=== PATIENT | female | born 1970 | race Caucasian/White ===

== ENCOUNTER 2017-12-27 13:00 | Outpatient (RCR) | payer MEDICAID, SELFPAY ==
--- NOTE | 2018-01-07 13:45 | PTTR_ITS ---
DATE: 01/07/18 SUBJECTIVE: [facility] states that she overall has been noting less heaviness, pressure. She feels she is controlling and more self manageable with her HEP. 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 Therapeutic procedures ([id number]). Promote EMG biofeedback for neuromuscular re- education of the pelvic floor via vaginal internal sensor independently placed by patient. Average resting tone was initially at 3.1 microvolts, however post relaxation and verbal cueing along with biofeedback was able to obtain a 1.9 microvolt reading. We incorporated pelvic floor isolation with use of wedge pillow under legs for comfort incorporating prolonged holds. She was able to isolate and contract 15 microvolts or high for 6-7 seconds. We then incorporated co-contraction with hip adductors with good isolation, again above 15 microvolts with average hold of 10 seconds. We incorporated ER with green Therabrand with good isolation and co-contraction of the pelvic floor,again holding for 10 seconds with 15 microvolt or greater. We then introduce bridging with good contraction 20 microvolts for 10 second hold with co- contraction. Initiated isolation first. She had good awareness and improved [id number] with improved endurance. Upgraded her HEP to incorporate co-contraction exercises along with isolation. Will follow up with her in 3-4 weeks and monitor her response and continue with EMG treatment. Direct treatment time: 30 mins Total treatment time: 30 mins KW/dp
--- NOTE | 2018-01-28 13:00 | PTTR_ITS ---
DATE: January 28, 2018 SUBJECTIVE: Armin reports that she feels that she has been doing better however is glad that the warmer weather is here for this is when she really seems to feel that she can not hold her bladder. She reports of only 2 occurrences of leakage since his last visit. She reports continued compliance with her HEP. She does continue to pee just in case before going out in the barn or before she leaves the house. She notes she also has noticed increased difficulty in holding while horse back riding. She does not feel that she has the strength to contract while riding. OBJECTIVE: Therapeutic procedures ([id number]). * X HEP review: Promoting isolation of the pelvic floor with urgency and to avoid just in case peeing to promote bladder strength and stabilization. Also recommended performing a plie squat with cocontraction of the pelvic floor to simulate horse back riding. * X Provided skilled instruction in proper exercise performance: utilizing EMG biofeedback for neuromuscular reeducation of the pelvic floor via internal vaginal sensor independently placed via patient. Patient's resting tone was 4 mV at lowest today however was in a lot of discomfort in her right shoulder. She received a cortisone injection the other day and has had a lot of discomfort since. She is having a very difficult time finding a comfortable position. Promoted isolation exercises only today secondary to this with quick flick contractions and prolonged hold. Able to demonstrate 10 seconds contractions greater than 15 mV consistently and consecutively for 10 contractions. * X Provided skilled manual cues to facilitate proper muscle recruitment and/ or movement pattern: avoiding holding her breath and promoting diaphragmatic breathing. Feel that the heat might be a trigger for her. Emphasized contraction to avoid increased frequency of bathroom trips. Will follow up in 3 weeks and proceed accordingly. Direct treatment time: 30 minutes Total treatment time: 30 minutes
== END 2018-05-29 ==
LOC: PT 14:00
PROVIDERS: PCP Nurse Practitioner Family; Referring Provider Nurse Practitioner Women's Health; Visit Provider Nurse Practitioner Women's Health
DX: N36.44 Muscular disorders of urethra (principal); N81.10 Cystocele, unspecified; N39.3 Stress incontinence (female) (male)
CPT/HCPCS: 97110

== ENCOUNTER 2019-01-14 14:49 | Outpatient (CLI) | payer MEDICAID, SELFPAY ==
[2019-01-14 15:08] LABS: Abs Immature Grans 0.01 k/cumm (0.0-0.09); Absolute Basophil Count 0.02 k/cumm (0.0-0.2); Absolute Eosinophil Count 0.07 k/cumm (0.0-0.7); Absolute Lymphocyte Count 1.81 k/cumm (1.2-3.4); Absolute Monocyte Count 0.33 k/cumm (0.11-0.7); Absolute Neutrophil Count 4.22 k/cumm (1.2-6.7); Basophils % 0.3; Eosinophils % 1.1; HCT 38.1 % (36.0-46.0); HGB 12.7 g/dL (12.0-15.5); Immature Grans % 0.2; Mean Corp. HGB Concentration 33.3 g/dL (32.0-36.0); Mean Corpuscular Hemoglobin 28.2 pg (27.0-33.0); Mean Corpuscular Volume 84.7 fL (80-95); Mean Platelet Volume 8.9 fL (8.0-11.0); Monocytes % 5.1; Neutrophils % 65.3; Platelet Count 266 x1000/uL (130-400); RBC Distribution Width 13.9 % (11.7-14.6); White Blood Cell Count 6.46 k/cumm (4.4-10.8)
[2019-01-14 17:20] LABS: ALT 21 U/L (12-78); AST 13 U/L (15-37); Albumin 3.6 g/dL (3.4-5.0); Alkaline Phosphatase 68 U/L (46-116); Anion Gap 8.5 mmol/L (3-11); BUN 13 mg/dL (7-18); Bilirubin, Total 0.3 mg/dL (0.2-1.0); CO2 27.5 mmol/L (21.0-32.0); CREATININE 0.78 mg/dL (0.55-1.02); Calcium 8.9 mg/dL (8.5-10.1); Chloride 101 mmol/L (98-107); Glucose 86 mg/dL (70-100); Lipase 151 U/L (73-393); Potassium 3.6 mmol/L (3.5-5.1); Sodium 137 mmol/L (136-145); Total Protein 7.4 g/dL (6.4-8.2)
[2019-01-19 12:29] LABS: Helicobacter pylori Ag, Feces Negative (NEGAT)
== END 2019-01-14 15:09 ==
PROVIDERS: PCP Nurse Practitioner Family; Visit Provider Nurse Practitioner Family
DX: R10.84 Generalized abdominal pain (principal); R11.0 Nausea; R14.2 Eructation; K59.00 Constipation, unspecified
CPT/HCPCS: 36415; 80053; 83690; 87338; 85025

== ENCOUNTER 2019-01-26 00:46 | Outpatient (CLI) | payer MEDICAID, SELFPAY ==
--- NOTE | 2019-01-26 07:41 | DI.US_ITS ---
SYMPTOM/DIAGNOSIS: ? HEPATOBILIARY PATHOLOGY,ABD PAIN, R10.84,R11.0,R14.2, NAUSEA, BELCHING, ERUCATION, K59.00, CONSTIPATION ABDOMEN ULTRASOUND: Routine examination. No priors. The aorta is of normal caliber. The IVC is unremarkable. The liver is normal in size. There is diffuse increased echogenicity of the liver suggestive of hepatic steatosis. No evidence of a hepatic mass is seen. The gallbladder and bile ducts are within normal limits as are the pancreas and spleen and kidneys. The left lower quadrant was evaluated sonographically and is grossly unremarkable. IMPRESSION: Hepatic steatosis.
== END 2019-01-26 01:06 ==
PROVIDERS: PCP Nurse Practitioner Family; Visit Provider Nurse Practitioner Family
DX: R10.84 Generalized abdominal pain (principal); R11.0 Nausea; R14.2 Eructation; K59.00 Constipation, unspecified; K76.0 Fatty (change of) liver, not elsewhere classified
CPT/HCPCS: 76700

== ENCOUNTER 2019-10-04 15:45 | Outpatient (REF) | payer MEDICAID, SELFPAY ==
[2019-10-04 18:41] LABS: Abs Immature Grans 0.01 k/cumm (0.0-0.09); Absolute Basophil Count 0.02 k/cumm (0.0-0.2); Absolute Lymphocyte Count 2.24 k/cumm (1.2-3.4); Basophils % 0.3; Eosinophils % 1.6; HCT 38.6 % (36.0-46.0); HGB 12.8 g/dL (12.0-15.5); Immature Grans % 0.2 %; Lymphocytes % 35.7; Mean Corp. HGB Concentration 33.2 g/dL (32.0-36.0); Mean Corpuscular Hemoglobin 28.2 pg (27.0-33.0); Mean Platelet Volume 9.1 fL (8.0-11.0); Monocytes % 6.4; Neutrophils % 55.8; Platelet Count 325 x1000/uL (130-400); RBC 4.54 m/cumm (4.00-5.20); RBC Distribution Width 13.4 % (11.7-14.6); White Blood Cell Count 6.27 k/cumm (4.4-10.8)
[2019-10-04 19:13] LABS: ALT 23 U/L (14-59); AST 13 U/L (15-37); Alkaline Phosphatase 65 U/L (46-116); BUN 15 mg/dL (7-18); Bilirubin, Total 0.3 mg/dL (0.2-1.0); CREATININE 0.86 mg/dL (0.55-1.02); Calcium 9.2 mg/dL (8.5-10.1); Chloride 102 mmol/L (98-107); Glucose 100 mg/dL (74-106); Potassium 3.9 mmol/L (3.5-5.1); Sodium 140 mmol/L (136-145); Total Protein 8.1 g/dL (6.4-8.2)
== END 2019-10-04 16:05 ==
LOC: LBN 15:45
PROVIDERS: PCP Nurse Practitioner Family; Visit Provider Nurse Practitioner Adult Health
DX: R10.9 Unspecified abdominal pain (principal); R16.1 Splenomegaly, not elsewhere classified
CPT/HCPCS: 80053; 85025

== ENCOUNTER 2019-10-05 08:33 | Outpatient (REF) | payer MEDICAID, SELFPAY ==
[2019-10-07 12:16] LABS: Helicobacter pylori Ag, Feces Negative (Negative)
== END 2019-10-05 08:53 ==
LOC: LBN 08:33
PROVIDERS: PCP Nurse Practitioner Family; Visit Provider Nurse Practitioner Adult Health
DX: K62.5 Hemorrhage of anus and rectum (principal); R10.9 Unspecified abdominal pain; R12 Heartburn
CPT/HCPCS: 87338; 82272; 82274

== ENCOUNTER 2019-11-08 01:17 | Outpatient (CLI) | payer MEDICAID, SELFPAY ==
--- NOTE | 2019-11-08 15:36 | DI.MAMMO_ITS ---
EXAM: MG MAMMO SCREENING CLINICAL HISTORY: screening TECHNIQUE: Mammograms were interpreted according to the usual protocol including computer analysis w [employer] CAD system, tomosynthesis and C-view imaging. COMPARISON: 2018 FINDINGS: The breasts are composed of heterogeneously dense fibroglandular densities, Breast Density category C . No suspicious masses or suspicious microcalcifications are seen. No skin thickening or abnormal axillary lymph nodes are seen. There has been no significant change from prior exams. IMPRESSION: BIRADS Category 1, negative mammogram. Yearly screening mammography is recommended. BREAST DENSITY: The mammogram demonstrates the patient's breast tissue is dense. Dense breast tissue is very common and is not abnormal but dense breast tissue can make it harder to find cancer on a ma mmogram. Also, dense breast tissue may increase breast cancer risk. This information about the result of the mammogram report was provided to the patient to raise their awareness. Use this report when y ou speak with the patient about their risks for breast cancer, which includes their family history. A t that time, you may recommend additional screening tests (Ultrasound or MRI) as they might be useful based on their risk. A negative radiographic report should not delay biopsy if a dominant or clinically suspicious mass is present. Up to ten percent of cancers are not identified on mammography. A negative report may reinforce clinical impression. Adenosis and dense breasts may obscure an underlying neoplasm. False positive reports average 6 to 10%.
== END 2019-11-08 01:37 ==
PROVIDERS: PCP Nurse Practitioner Family; Visit Provider Nurse Practitioner Family
DX: Z12.31 Encounter for screening mammogram for malignant neoplasm of breast (principal)
CPT/HCPCS: 77063; 77067

== ENCOUNTER 2020-03-13 14:54 | Emergency (ER) | payer MEDICAID, SELFPAY ==
[2020-03-13 15:01] VITALS: BP 200/110; PULSE 71; RESP 16; TEMP 36.9; O2SAT 97
--- NOTE | 2020-03-13 15:30 | ED.GENADUL_ITS ---
Discharge Plan Disposition Patient Disposition: HOME Condition: Stable Discharge Details Chief Complaint: Chest/Rib Clinical Impression: Chest wall injury Primary Care Provider: Jo Ann May ED Provider: Pablo Rashid Home Meds and New Rx's Prescriptions: No Action No Known Home Meds RF: 0 Discharge Instructions Instructions: Rib Contusion (ED) Additional Instructions: At this time x-rays unremarkable. Gentle stretching as tolerated. Cool compresses every 2 hours for 20 minutes. [id number] Tylenol and/or Motrin as directed for discomfort. Please watch for new or worsening symptoms and return to the ER for any concerns. I do recommend reaching out your primary care provider tomorrow for prompt outpatient reevaluation Discharge Data Discharge Date/Time-TO BE ENTERED AT DEPARTURE: 03/13/20 16:39 Medical Decision Making 49-year-old female presenting for a left chest wall injury that occurred earlier today. She appears well, nontoxic. O2 sats are in the high 90s on room air, heart rate in the 70s. She was noted to be quite hypertensive although denies any headache, chest pain, shortness of breath, numbness, tingling, weakness. We discussed analgesia but she does not want anything for her pain. Will obtain chest x-ray with left rib series and reassessment X-ray read by me and later confirmed with radiology as negative. No signs of pneumothorax or obvious rib fracture. Discussed findings with patient. She is relieved and has no additional questions or concerns. She does not want a prescription for analgesia and would prefer to take [id number] medications. Repeat blood pressure is now 181/100, has come down from her initial presentation without therapy. She remains otherwise asymptomatic regarding her hypertension. We did discuss her hypertension and the importance of outpatient follow-up as she may require hypertension medications if her blood pressure does not come down when she is not any pain. Patient is agreeable to this plan and has no additional questions or concerns. Medical Records Medical records reviewed: Yes I reviewed the patient's medical records. HPI General Mode of arrival: ambulatory . Date/Time Provider Initiated Documentation: 03/13/20 15:10 . Limitations to Documentation: no limitations . Information obtained by: patient . HPI Narrative: This is a 49-year-old female with history of hypertension, IBS, migraines, anxiety, presenting to the ER for evaluation of left chest wall and rib pain. She says that 2 horses began to play-fight, they were running toward her, and she dove out of the way. While she was diving 1 horse did bump her from behind and made her fall harder than she would have. She struck the left side of her chest on the ground. She was not stepped on by the horse. She reports that the pain is mild at rest moderate with movement or deep breathing. She denies striking her head, headache, LOC, neck pain, visual changes, shortness of breath, abdominal pain, nausea, vomiting, numbness, tingling, weakness. Related Data Home Medications Medication Instructions Recorded Confirmed Unknown [No Known Home Meds] 03/13/20 03/13/20 Allergies Allergy/AdvReac Type Severity Reaction Status Date / Time fentanyl Allergy Intermediate unable to Verified 03/13/20 15:08 speak midazolam Allergy Intermediate unable to Verified 03/13/20 15:08 speak bacitracin Allergy Verified 03/13/20 15:08 [From Neosporin ([id number])] bacitracin zinc Allergy Verified 03/13/20 15:08 [From Neosporin ([id number])] latex Allergy Verified 03/13/20 15:08 neomycin sulfate Allergy Verified 03/13/20 15:08 [From Neosporin ([id number])] Penicillins Allergy Verified 03/13/20 15:08 polymyxin B Allergy Verified 03/13/20 15:08 [From Neosporin (vdw-[id number])] sumatriptan [From Imitrex] Allergy Verified 03/13/20 15:08 sumatriptan succinate Allergy Unverified 03/13/20 15:08 [From Imitrex] General Stated Complaint: Chest/Rib BRYANNA: 3 Review of Systems Constitutional Constitutional: Reports headache(s) (Migraines) and Denies weakness Eyes Eyes: Denies change in vision ENT Ears, Nose, Mouth, and Throat: Reports headache(s) (Migraines) and Denies neck pain Cardiovascular Cardiovascular: Reports chest pain (Chest wall pain) and Denies dyspnea Respiratory Respiratory: Denies cough and Denies dyspnea Gastrointestinal Gastrointestinal: Denies abdominal pain, Denies nausea and Denies vomiting Musculoskeletal Musculoskeletal: Denies back pain, Denies neck pain, Denies numbness and Denies tingling Integumentary/Breasts Skin/Breast: Denies rash Neurologic Neurologic: Reports headache(s) (Migraines), Denies numbness, Denies tingling and Denies weakness [facility] Medical History Arthritis of right acromioclavicular joint (Chronic 01/16/18) Atopic dermatitis (Chronic) Depression (Chronic) YUMIKO (generalized anxiety disorder) (Chronic) History of melanoma (Inactive) Hyperlipidemia, unspecified (Chronic 02/08/18) 01/2018 labs: 10-year ASCVD = 1% --> no statin indicated at this time IBS (irritable bowel syndrome) (Chronic) Migraine without status migrainosus (Chronic) Migraines (Resolved) Right rotator cuff tendinitis (Acute 01/16/18) Tendinopathy of right biceps tendon (Acute 01/16/18) Uterine prolapse (Chronic) Surgical History section (Resolved ~2010) Family History Mother , Colon CA at age 55. 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 gender identity: female What type of physical activity do you participate in: walking Frequency: daily Do you feel safe at home: Yes Do you feel safe in your relationship?: Yes Exam Const General: cooperative, healthy appearing, comfortable and no acute distress Orientation: alert, awake and oriented x3 HENMT Head: normal to inspection, normocephalic and atraumatic Face and sinus: normal facial exam Mouth: moist mucous membranes Eyes Conjunctivae: conjunctivae normal Sclera: sclerae normal EOM: EOM intact bilaterally Neck Neck: normal visual inspection, full ROM, trachea midline, supple and nontender Chest Chest: normal inspection of the chest, no crepitus and tenderness (Diffuse left lateral chest wall) Resp Effort & Inspection: normal respiratory effort and able to speak in complete sentences Auscultation: clear to auscultation bilaterally Cardio Rate: regular rate Rhythm: regular rhythm GI Inspection: normal to inspection Palpation: soft and nontender Back/Spine/Pelvis Back: No back tenderness Skin General skin exam: no rashes or lesions noted Neuro General: patient alert, patient awake, patient oriented x3, moves all extremities and no focal motor deficits Speech: speech normal Gait: normal gait Motor: muscle tone normal throughout and strength 5/5 throughout Sensory Exam: no sensory deficits noted Extrem General: normal to inspection, full ROM and capillary refill normal Psych Appearance: grossly normal Mental Status: mental status grossly normal Course Vital Signs Vital signs: Vital Signs Temperature 36.9 C 03/13/20 15:01 Pulse 71 03/13/20 15:01 Respiratory Rate 16 03/13/20 15:01 Blood Pressure 200/110 H 03/13/20 15:01 Pulse Oximetry 97 03/13/20 15:01 Temperature 36.9 C 03/13/20 15:01 Temperature Source Skin 03/13/20 15:01 Pulse 71 03/13/20 15:01 Respiratory Rate 16 03/13/20 15:01 Respiratory Depth Shallow 03/13/20 15:05 Blood Pressure 200/110 H 03/13/20 15:01 Blood Pressure Position Standing 03/13/20 15:01 Pulse Oximetry 97 03/13/20 15:01 Oxygen Delivery Method Room Air 03/13/20 15:01 Oxygen Flow Rate 0 03/13/20 15:01 Pain Level 7 03/13/20 15:05 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
--- NOTE | 2020-03-13 15:46 | DI.RAD_ITS ---
EXAM: XR RIBS LT W PA LAT CHEST CLINICAL HISTORY: fall off horse, pain L ribs. COMPARISON: No exams were available for comparison FINDINGS: LUNGS: Clear. No pneumothorax, infiltrate or effusion is seen. Heart: Normal size. BONES: Four views of the ribs were performed. No displaced rib fracture is seen. The spine appears intact. IMPRESSION: Unremarkable radiographic appearance of the chest and left ribs.
[2020-03-13 15:49] VITALS: BP 181/100; PULSE 62; RESP 20; O2SAT 97
== END 2020-03-13 16:39 | disposition home or self-care (01) ==
PROVIDERS: Emergency Provider Physician Assistant; PCP Nurse Practitioner Family
DX: S29.091A Other injury of muscle and tendon of front wall of thorax, initial encounter (principal); W55.12XA Struck by horse, initial encounter; I10 Essential (primary) hypertension
CPT/HCPCS: 99283; 71046; 71100

== ENCOUNTER 2020-10-09 02:12 | Outpatient (CLI) | payer MEDICAID, SELFPAY ==
[2020-10-10 13:21] LABS: COVID-19 RT-PCR UVMMC Result Negative (Negative)
== END 2020-10-09 02:32 ==
PROVIDERS: PCP Nurse Practitioner Family; Visit Provider Nurse Practitioner Family
DX: Z20.822 Contact with and (suspected) exposure to COVID-19 (principal)
CPT/HCPCS: U0003

== ENCOUNTER 2021-07-12 01:27 | Outpatient (CLI) | payer MEDICAID, SELFPAY ==
--- NOTE | 2021-07-12 08:30 | DI.MAMMO_ITS ---
Exam(s) MAMMO SCREENING EXAM: MAMMO SCREENING CLINICAL HISTORY: screening.Z12.39 TECHNIQUE: Mammograms were interpreted according to the usual protocol including computer analysis w [employer] CAD system, tomosynthesis and C-view imaging. COMPARISON: FINDINGS: The breasts are heterogeneously dense. No dominant mass or clumped microcalcification is identified in either breast. Current examination is compared with previous examinations including November 2017 an d there is new 10 millimeter in diameter medial right retroareolar breast mass not visible on prior s tudies. No other significant change seen. Additional mammographic views of this area to include CC and MLO spot compression view are recommended, ultrasound recommended as well. IMPRESSION: Additional mammographic views of the right breast and right breast ultrasound are requested as descri bed above. BI-RADS Category 0 - Assessment Incomplete: Need additional imaging evaluation Breast Density - Category C - Heterogeneously dense
== END 2021-07-12 01:47 ==
PROVIDERS: PCP Nurse Practitioner Family; Visit Provider Nurse Practitioner Family
DX: Z12.31 Encounter for screening mammogram for malignant neoplasm of breast (principal); R92.8 Other abnormal and inconclusive findings on diagnostic imaging of breast
CPT/HCPCS: 77063; 77067

== ENCOUNTER 2021-07-26 01:01 | Outpatient (CLI) | payer MEDICAID, SELFPAY ==
--- NOTE | 2021-07-26 | DI.US_ITS ---
Exam(s) US BREAST RT COMPLETE EXAM: US BREAST RT COMPLETE CLINICAL HISTORY: F/U MAMMO, NEW RT BREAST MASS. TECHNIQUE: Complete ultrasound of the right breast was performed including all 4 quadrants, the retr oareolar region, and the ipsilateral axilla. COMPARISON: Prior mammograms were reviewed. Most recent mammogram was 07/12/2021 FINDINGS: There are multiple microcysts seen through out the right breast. At the central 1 o'clock position there is a 1.2 x 0.5 centimeter cyst which corresponds to the findi ng on the mammogram. All the other findings are smaller and have the appearance of simple are hemorrhagic and septated ross rocysts. These are located in all 4 quadrants. Most importantly, there are no solid lesions seen in the right breast. No axillary adenopathy. IMPRESSION: Multiple microcysts. The largest measures 12 x 5 millimeters and corresponds to the finding on the m ammogram. No solid lesions seen on ultrasound. Appropriate follow-up is repeat ultrasound in 6 months. That time recommend bilateral breast ultraso und examination given the number of findings in the right breast which are hidden subjacent to her mo derately dense fibroglandular tissue on mammography.. Findings are recommendations were discussed by myself with the patient BI-RADS Category 3 - 6 month - Probably Benign Finding: Recommend follow-up mammography in 6 months Breast Density - Category C - Heterogeneously dense Breast density Category C or D implies that the patient has dense breast tissue. Dense breast tissue can make it harder to find cancer on a mammogram. Dense breast tissue is also associated with an incr eased risk of breast cancer. This information about the result of the mammogram report was provided to the patient to raise their awareness. Use this report when you speak with the patient about their risks for breast cancer, which includes their family history. At that time, you may recommend additional screening tests (Ultrasoun d or MRI) as these tests may add significant information. A negative radiographic report should not delay biopsy if a dominant or clinically suspicious mass is present. Up to ten percent of cancers are not identified on mammography. A negative report may reinforce clinical impression. Adenosis and dense breasts may obscure an underlying neoplasm. False positive reports average 6 to 10%. Patient will receive a letter notifying them of these results.
--- NOTE | 2021-07-26 14:30 | DI.MAMMO_ITS ---
Exam(s) MG MAMMO SCREEN CALL BACK UNI EXAM: MG MAMMO SCREEN CALL BACK UNI-RIGHT CLINICAL HISTORY: F/U MAMMO, NEW RT BREAST MASS. TECHNIQUE: Unilateral spot mammographic images obtained with 3D tomosynthesisand utilizing computer aided detection (CAD). . COMPARISON: Prior mammograms were reviewed. This additional imaging was performed due to findings described on the recent screening mammogram of . FINDINGS: Additional mammographic views performed todayreveals the nodule to persist.Therefore ultrasound was p erformed Ultrasound performed today reveals this to be a 12 x 5 millimeter cyst. There also multiple other cy stic findings in the right breast on ultrasound, also smaller. See that separate ultrasound report d ictated today. IMPRESSION: There is a 12 x 5 millimeter cyst which corresponds to the finding on the mammogram. Appropriate follow-up is breast ultrasound in 6 months. At that time I recommend that she undergo b ilateral breast ultrasound, given the density of her fibroglandular tissue on mammography and the num justo of findings seen on today's right breast ultrasound, only of 1 of which was visible on 3D mammogr aphy.. The patient was informed of these findings and recommendations prior to leaving the department today. BI-RADS Category 3 - 6 month - Probably Benign Finding: Recommend follow-up mammography in 6 months Breast Density - Category C - Heterogeneously dense Breast density Category C or D implies that the patient has dense breast tissue. Dense breast tissue can make it harder to find cancer on a mammogram. Dense breast tissue is also associated with an incr eased risk of breast cancer. This information about the result of the mammogram report was provided to the patient to raise their awareness. Use this report when you speak with the patient about their risks for breast cancer, which includes their family history. At that time, you may recommend additional screening tests (Ultrasoun d or MRI) as these tests may add significant information. A negative radiographic report should not delay biopsy if a dominant or clinically suspicious mass is present. Up to ten percent of cancers are not identified on mammography. A negative report may reinforce clinical impression. Adenosis and dense breasts may obscure an underlying neoplasm. False positive reports average 6 to 10%. Patient will receive a letter notifying them of these results.
== END 2021-07-26 01:21 ==
PROVIDERS: PCP Nurse Practitioner Family; Visit Provider Nurse Practitioner Family
DX: R92.8 Other abnormal and inconclusive findings on diagnostic imaging of breast (principal); N60.01 Solitary cyst of right breast
CPT/HCPCS: 76642; 77063; 77067

== ENCOUNTER 2021-07-31 02:20 | Outpatient (CLI) | payer MEDICAID, SELFPAY ==
[2021-07-31 15:51] LABS: Anion Gap 8.7 mmol/L (3-11); BUN 16 mg/dL (7-18); CO2 27.3 mmol/L (21.0-32.0); CREATININE 0.9 mg/dL (0.55-1.02); Calculated LDL 128 mg/dL (<100); Chloride 104 mmol/L (98-107); Cholesterol 214 mg/dL (<200); Glucose 86 mg/dL (74-106); HDL Cholesterol 45 mg/dL (40-60); Potassium 3.9 mmol/L (3.5-5.1); Sodium 140 mmol/L (136-145); Triglyceride 207 mg/dL (<150)
== END 2021-07-31 02:21 | disposition home or self-care (01) ==
LOC: LBO 02:20
PROVIDERS: PCP Nurse Practitioner Family; Visit Provider Nurse Practitioner Family
DX: I10 Essential (primary) hypertension (principal); E78.5 Hyperlipidemia, unspecified; Z13.1 Encounter for screening for diabetes mellitus
CPT/HCPCS: 36415; 80048; 80061

== ENCOUNTER 2022-01-24 01:44 | Outpatient (CLI) | payer MEDICAID, SELFPAY ==
--- NOTE | 2022-01-24 13:22 | DI.US_ITS ---
Exam(s) US BREAST LT COMPLETE US BREAST RT COMPLETE EXAM: US BREAST RT COMPLETE CLINICAL HISTORY: 6 mo f/u R92.8 ABNL FINDINGS TECHNIQUE: Ultrasound performed using standard protocol. COMPARISON: US US BREAST RT COMPLETE from 07/26/2021 US US BREAST LT COMPLETE from 01/24/2022 FINDINGS: Bilateral breast ultrasound was performed. There are multiple small cysts seen bilaterally, the larg est in the left breast about 8 millimeters in diameter in the 2 o'clock position 4 cm from the nipple and the largest in the right about 9 millimeters in diameter in the 12 o'clock position 1 cm from th e nipple. No suspicious solid mass identified. No suspicious interval change from prior examination of June 2021. IMPRESSION: No specific evidence of malignancy. I would suggest that routine mammography resume with bilateral m ammogram in June 2022. DATA REPOSITORY:
== END 2022-01-24 02:04 ==
PROVIDERS: PCP Nurse Practitioner Family; Visit Provider Nurse Practitioner Family
DX: R92.8 Other abnormal and inconclusive findings on diagnostic imaging of breast (principal)
CPT/HCPCS: 76642

== ENCOUNTER 2022-02-08 11:44 | Outpatient (REF) | payer MEDICAID, SELFPAY ==
--- NOTE | 2022-02-08 11:00 | PAPFT_PTH ---
PATIENT: Armin Rizo LOC: [facility] U#:[id number] AGE/SX: 51/F ROOM: RE02/08/[address]: ROBINSON Guzmán : 1970 BED: DIS: 02/08/2022 SPEC #: [id number] RECD: 02/08/22 15:58 STATUS: MADHAVI REQ #: [id number] KAROLINE: 02/08/22 11:[address]: Rosalba Toribio DEPT: [facility] Cytology RECD BY: Danika Weaver ENTERED: 02/08/22 16:00 SP TYPE: PAPFT OTHR DR: Jo Ann aMy APRN Tissues: 1 - CX/ENDOCX FOR PAP SMEARS Procedures: PAP THIN PREP/UVM Screening HPV DNA PROBE Comments: [id number]
== END 2022-02-08 11:45 | disposition home or self-care (01) ==
LOC: LBN 11:44
PROVIDERS: PCP Nurse Practitioner Family; Visit Provider Nurse Practitioner Family
DX: Z12.4 Encounter for screening for malignant neoplasm of cervix (principal); Z11.51 Encounter for screening for human papillomavirus (HPV)
CPT/HCPCS: 88142; 87624

== ENCOUNTER → 2022-07-15 00:48 | Outpatient (CLI) | payer MEDICAID, SELFPAY ==
--- NOTE | 2022-07-15 06:45 | DI.MAMMO_ITS ---
Exam(s) MAMMO SCREENING EXAM: MAMMO SCREENING CLINICAL HISTORY: screening Z12.39 TECHNIQUE: Bilateral full field digital CC and MLO mammographic images were obtained with 3D tomosyn thesis and utilizing computer aided detection (CAD). COMPARISON: Available for comparison. FINDINGS: Masses/Architectural Distortion: None seen. Microcalcifications: No suspicious pleomorphic-type are seen. The punctate calcifications seen in the outer right breast are stable. Skin Thickening/Nipple Retraction: None. IMPRESSION: 1. No significant interval change with no specific features of malignancy noted. 2. Unless there is more urgent need, screening mammography is recommended, as per [employer] guidelines. BI-RADS Category 2 - Benign Findings Breast Density - Category C - Heterogeneously dense Breast density category C or D implies that the patient has dense breast tissue. Dense breast tissue is very common and is not abnormal but dense breast tissue can make it harder to find cancer on a ma mmogram. Also, dense breast tissue may increase their breast cancer risk. This information about the result of the mammogram report was provided to the patient to raise their awareness. Use this report when you speak with the patient about their risks for breast cancer, which includes their family hist ory. At that time, you may recommend for more screening tests (Ultrasound or MRI) as they might be us eful based on their risk. A negative radiographic report should not delay biopsy if a dominant or clinically suspicious mass is present. Up to ten percent of cancers are not identified on mammography. A negative report may reinforce clinical impression. Adenosis and dense breasts may obscure an underlying neoplasm. False positive reports average 6 to 10%. Patient will receive a letter notifying them of these results.
== END ==
PROVIDERS: PCP Nurse Practitioner Family; Visit Provider Nurse Practitioner Family
DX: Z12.31 Encounter for screening mammogram for malignant neoplasm of breast (principal); R92.8 Other abnormal and inconclusive findings on diagnostic imaging of breast
CPT/HCPCS: 77063; 77067

== ENCOUNTER → 2022-08-12 15:37 | Outpatient (CLI) | payer MEDICAID, SELFPAY ==
--- NOTE | 2022-08-12 14:00 | DI.RAD_ITS ---
Exam(s) XR KNEE LT 3V AP,LAT,CARA EXAM: XR KNEE LT 3V AP,LAT,CARA CLINICAL HISTORY: Medial injury from ice skating, r/o avulsion frx S89.90XA INJURY. TECHNIQUE: 2D digital imaging was performed. Three views. COMPARISON: No exams were available for comparison FINDINGS: BONES: No acute fracture is present. No bony destructive lesion is seen. Minimal enthesophyte at qu adriceps insertion on the patella. JOINTS: Mild medial femoral tibial joint space narrowing. No significant periarticular spurring. Re maining joint spaces are maintained. The knee is normally aligned. No joint effusion is seen. SOFT TISSUE: Normal. IMPRESSION: Mild degenerative changes. DATA REPOSITORY: RADIATION DOSE DELIVERED:
== END ==
PROVIDERS: PCP Nurse Practitioner Family; Visit Provider Family Medicine
DX: M17.12 Unilateral primary osteoarthritis, left knee (principal)
CPT/HCPCS: 73562

== ENCOUNTER 2022-10-22 03:14 | Outpatient (CLI) | payer MEDICAID, SELFPAY ==
[2022-10-22 08:59] LABS: Anion Gap 4.6 mmol/L (3-11); BUN 16 mg/dL (7-18); CO2 29.4 mmol/L (21.0-32.0); CREATININE 0.9 mg/dL (0.55-1.02); Calculated LDL 109 mg/dL (<100); Chloride 102 mmol/L (98-107); Cholesterol 204 mg/dL (<200); Estimated GFR 76.92 (mL/min/1.73m2); Glucose 103 mg/dL (74-106); HDL Cholesterol 44 mg/dL (40-60); Potassium 4.1 mmol/L (3.5-5.1); Sodium 136 mmol/L (136-145); Triglyceride 256 mg/dL (<150)
== END 2022-10-22 03:15 | disposition home or self-care (01) ==
LOC: LBO 03:14
PROVIDERS: PCP Nurse Practitioner Family; Referring Provider Nurse Practitioner Family; Visit Provider Nurse Practitioner Family
DX: E78.5 Hyperlipidemia, unspecified (principal); Z13.1 Encounter for screening for diabetes mellitus; I10 Essential (primary) hypertension; E66.8 Other obesity
CPT/HCPCS: 36415; 80048; 80061

== ENCOUNTER 2022-11-04 01:03 | Outpatient (CLI) | payer MEDICAID, SELFPAY ==
--- NOTE | 2022-11-04 07:15 | DI.MRI_ITS ---
Exam(s) MR LOWER JOINT LT WO EXAM: MR LOWER JOINT LT WO CLINICAL HISTORY: PAIN,INTERNAL DERANGEMENT LT KNEE, M23.92. TECHNIQUE: Multiplanar multisequence MRI was performed. COMPARISON: No exams were available for comparison FINDINGS: BONES: There is no fracture or contusion pattern. JOINTS: Articular cartilage is unremarkable. No effusion is present. TENDONS: Extensor mechanism: Unremarkable. Medial retinaculum: Unremarkable. Lateral retinaculum: Unremarkable. Popliteus: Unremarkable. MUSCLES: Unremarkable. MENISCI: There is hyperintense signal seen in the body of the medial meniscus suspicious for tear. T he lateral meniscus is unremarkable. SOFT TISSUES: There is mild edema in the soft tissues anterior to the tibial tuberosity and patella. LIGAMENTS: Anterior Cruciate: Unremarkable. Posterior Cruciate: Unremarkable. Medial Collateral:There is thickening of the proximal medial collateral ligament. There also appears to be some discontinuity at its insertion site onto the proximal femur suspicious for partial tear. Lateral Collateral: Unremarkable. OTHER: IMPRESSION: 1. Findings of hyperintense signal in the body of the medial meniscus suspicious for tear. 2. Findings of a partial tear of the proximal medial collateral ligament. DATA REPOSITORY:
== END 2022-11-04 01:23 ==
LOC: DI 01:04
PROVIDERS: PCP Nurse Practitioner Family; Visit Provider Student in an Organized Health Care Education/Training Program
DX: M23.8X2 Other internal derangements of left knee (principal); M25.562 Pain in left knee; S83.242A Other tear of medial meniscus, current injury, left knee, initial encounter; M79.89 Other specified soft tissue disorders; S83.412A Sprain of medial collateral ligament of left knee, initial encounter
CPT/HCPCS: 73721

== ENCOUNTER 2022-12-11 09:37 | Day surgery (SDC) | payer MEDICAID, SELFPAY ==
[2022-12-11] VITALS (11 sets, daily range): BP systolic 67–141; BP diastolic 35–91; PULSE 46–62; RESP 12–20; TEMP 36.5–37.1; O2SAT 91–99; BMI 34.2
[2022-12-11] MEDS: Acetaminophen 500 MG TAB 1000 MG PO (10:17)
[2022-12-11] MEDS: Celecoxib 200 MG CAP 400 MG PO (10:17)
--- NOTE | 2022-12-11 10:21 | W.ANESPRE ---
General Info Date of Service Date Performed: 12/11/22 Height: 5 ft 3.5 in Weight: 88.904 kg Body Mass Index (BMI): 34.2 Surgical Procedure: Operation Date: 12/11/22 12:10 Proposed Procedure Side Surgeon p Knee Arthroscopy, Partial Medial Menisectomy Left Rey Lira MD Meds Allergies and Home Medications Allergies Allergy/AdvReac Type Severity Reaction Status Date / Time fentanyl Allergy Intermediate unable to Verified 12/11/22 10:06 speak midazolam Allergy Intermediate unable to Verified 12/11/22 10:06 speak bacitracin Allergy Verified 12/11/22 10:06 [From Neosporin ([id number])] bacitracin zinc Allergy Verified 12/11/22 10:06 [From Neosporin ([id number])] latex Allergy Verified 12/11/22 10:06 neomycin sulfate Allergy Verified 12/11/22 10:06 [From Neosporin ([id number])] Penicillins Allergy Skin Rash Verified 12/11/22 10:06 polymyxin B Allergy Verified 12/11/22 10:06 [From Neosporin ([id number])] sumatriptan [From Imitrex] Allergy Verified 12/11/22 10:06 sumatriptan succinate Allergy Verified 12/11/22 10:06 [From Imitrex] Home Medication Medication Instructions Recorded propranolol 20 mg tablet 20 mg PO BID #180 tabs 06/20/22 ketoconazole 2 % shampoo 1 applic topical ONCE Scalp 08/08/22 itching/scaling metronidazole 0.75 % topical cream 1 applic topical BID PRN 08/08/22 Periorificial Dermatitis celecoxib 100 mg capsule (Celebrex) 100 mg PO BID #30 caps 10/10/22 Current Visit Medications: Current Medications Generic Name Dose Route Start Last Admin Trade Name Freq PRN Reason Stop Dose Admin Acetaminophen 1,000 mg 12/11/22 06:00 12/11/22 10:17 Acetaminophen 500 Mg Tab PO 12/11/22 18:00 1,000 mg PREOP ROMEL Administration Celecoxib 400 mg 12/11/22 06:00 12/11/22 10:17 Celecoxib 200 Mg Cap PO 12/11/22 18:00 400 mg PREOP ROMEL Administration Ringer's Solution 1,000 mls @ 80 mls/hr 12/11/22 06:00 IV 01/09/23 23:59 INFUSION ROMEL Cefazolin Sodium/Dextrose 2 gm in 50 mls @ 100 mls/hr 12/11/22 06:00 Ancef Duplex IVPB 12/11/22 16:00 PREOP ROMEL IV Miscellaneous Supplies 1 each 12/11/22 06:00 Iv Access IV 01/09/23 23:59 DIRECTED ROMEL Sodium Chloride 0 ml 12/11/22 06:00 Normal Saline Flush 10 Ml Syr IV 01/09/23 23:59 PRN PRN Sodium Chloride 0 ml 12/11/22 06:00 Normal Saline 10 Ml Vial IJ 01/09/23 23:59 DIRECTED PRN Sterile Water 0 ml 12/11/22 06:00 Water,Injection,Sterile 10 Ml Vial IJ 01/09/23 23:59 DIRECTED PRN PFSH Active Problems Active Problems: Problem Status Onset Code Atopic dermatitis Hyperlipidemia, unspecified 02/08/18 E78.5 Migraine without status migrainosus G43.909 Uterine prolapse N81.4 IBS (irritable bowel syndrome) K58.9 Essential hypertension I10 Constipation K59.00 Knee injury S89.90XA Obesity E66.9 Internal derangement of left knee M23.92 Tear of medial meniscus of left knee S83.242A Medical History Medical History (Updated 12/11/22 @ 10:38 by Krupa White RN) A-fib Anemia Arthritis of right acromioclavicular joint (01/16/18) BCC (basal cell carcinoma of skin) Depression Digital mucous cyst of finger of right hand R middle finger; [facility] Ortho (Dr. Villarreal) YUMIKO (generalized anxiety disorder) Melanoma rt posterior thigh s/p excision Periorificial dermatitis Right rotator cuff tendinitis (01/16/18) Rosacea Sebaceous hyperplasia Seborrheic keratoses Tendinopathy of right biceps tendon (01/16/18) Viral warts Medical History Comments:: Per pt. stated after anesthesia she is unable speak afterwards. Surgical History Surgical History (Updated 12/11/22 @ 10:05 by Krupa White RN) section (~2010) H/O basal cell carcinoma excision (02/22/21) right mid back H/O shoulder surgery Right shoulder tendon repair Hx of melanoma excision (~1995) rgy posterior thigh Tobacco Smoking/Tobacco Use Status: Never Passive smoking exposure: No Alcohol Alcohol Intake: current Alcohol intake frequency: holidays/special occasions only Substance Use Substance use: Never Substance use type: does not use Vital Signs and Lab Results Vital Signs Most Recent Vital Signs in EMR: Most Recent Vital Signs Temp Pulse Resp BP Pulse Ox 36.5 C 57 L 18 130/91 H 96 12/11/22 09:41 12/11/22 09:41 12/11/22 09:41 12/11/22 09:41 12/11/22 09:41 Lab Results Blood Type / Crossmatch: No Data to Display Complete Blood Count: No Data to Display Complete Metabolic Panel: No Data to Display Liver Function Panel: No Data to Display Coagulation Panel: No Data to Display Cardiac Panel: No Data to Display Arterial Blood Gas: No Data to Display Venous Blood Gas: No Data to Display Pancreas Panel: No Data to Display Thyroid Panel: No Data to Display Infectious Disease: No Data to Display Blood Cultures: No Data to Display Toxicology Panel: No Data to Display Panel: No Data to Display Anesthesia Assessment and Plan Anesthesia History Personal History: Other (unable to talk following anesthesia at times. No issues with shoulder surgery done here. Intraop record reviewed. ) Family History: No Family History of Anesthesia Complications Exercise Tolerance Exercise Tolerance: Metabolic Equivalents>4 Pertinent Negatives Pertinent Negatives: No Major Cardiovascular Symptoms or Complaints and No Major Pulmonary Symptoms or Complaints Cardiac & Pulmonary Exam Cardiac Exam: Normal S1/S2 Heart Sounds Pulmonary Exam: Clear Bilateral Breath Sounds Implantable Cardiac Device Does patient have a Pacemaker or an ICD?: No Airway Exam Known Difficult Airway: No Mallampati Class: 3 Mouth Opening: Normal (> 3cm) Thyromental Distance: Greater than 3 cm Neck Range of Motion: Full ROM Neck Circumference: Normal Teeth Condition: Normal Dentition (bonded front tooth, stable) ASA Classification ASA Score: ASA 2 Emergency Case?: No NPO Status NPO Status: NPO Clears >2 hours, Solids >8 hours Status Status: Negative HCG Anesthesia Plan Resuscitation Status: Full Code Anesthesia Technique: General Anesthesia Airway Planned: LMA Monitors Used: Standard Monitors
[2022-12-11] MEDS: Lactated Ringers 1,000 ML 80 ML IV (10:28)
--- NOTE | 2022-12-11 10:38 | W.PREOPHP ---
Assessment and Plan Assessment and plan (1) Tear of medial meniscus of left knee: Status: Acute Assessment and plan: Armin is a 52-year-old who has a medial meniscal tear of the left knee. She has failed other nonoperative options. She continues have symptoms without any significant signs of arthritis. Therefore, she is here today for arthroscopic partial medial meniscectomy of the left knee. I reviewed the risk of the procedure to include bleeding, infection, pain, stiffness, worsening arthritis or osteonecrosis, retear or recurrence, incomplete resection, blood clot. Despite these risk, she elects to proceed. History of Present Illness History of Present Illness Chief Complaint: Left Medial Meniscus Tear Narrative: Armin is a 52-year-old female who has continued pain about her left knee. She has tried a host of nonoperative options but continues to have pain. MRI confirmed the diagnosis of a medial meniscal tear and she is here today for treatment of this. She denies any changes to her medical history. She does have a complex history although most of her issues have been in the remote past with no active issues and with poor details in her history. She denies any chest pain or shortness of breath. Review of Systems All systems reviewed & are unremarkable except as noted in HPI and below PFSH All Active Problems Atopic dermatitis (Chronic) Hyperlipidemia, unspecified (Chronic 02/08/18) 09/2022 labs: 10-year ASCVD = 2.3% Migraine without status migrainosus (Chronic) Uterine prolapse (Chronic) IBS (irritable bowel syndrome) (Chronic) Essential hypertension (Chronic) Constipation (Chronic) Knee injury (Acute) Obesity (Chronic) Internal derangement of left knee (Acute) Tear of medial meniscus of left knee (Acute) Medical History A-fib Anemia Arthritis of right acromioclavicular joint (01/16/18) BCC (basal cell carcinoma of skin) Depression Digital mucous cyst of finger of right hand R middle finger; [facility] (Dr. Villarreal) YUMIKO (generalized anxiety disorder) Melanoma rt posterior thigh s/p excision Periorificial dermatitis Right rotator cuff tendinitis (01/16/18) Rosacea Sebaceous hyperplasia Seborrheic keratoses Tendinopathy of right biceps tendon (01/16/18) Viral warts Surgical History section (~2010) H/O basal cell carcinoma excision (02/22/21) right mid back H/O shoulder surgery Right shoulder tendon repair Hx of melanoma excision (~1995) rgy posterior thigh Family History Mother , Colon CA at age 55. 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[employer] Parent Pets and animals: Yes Pets and animals: cat(s), dog(s) and horse(s) Sexually active: Yes Do you think of yourself as: straight/heterosexual Current gender identity: female What is your relationship status?: How often do you talk on the phone with friends or family?: never How often do you get together with friends or relatives?: three or more times per week Do you belong to any clubs or organized social groups?: yes Panel score (0-1 are the most socially isolated patients): 3 What type of physical activity do you participate in: walking Frequency: daily Seatbelt use: always Helmet use: Yes Drive intox or ride w/intox horse and wagon driver: No Do you feel safe at home: Yes Do you feel safe in your relationship?: Yes Meds Allergies and Home Medications Allergies Allergy/AdvReac Type Severity Reaction Status Date / Time fentanyl Allergy Intermediate unable to Verified 12/11/22 10:06 speak midazolam Allergy Intermediate unable to Verified 12/11/22 10:06 speak bacitracin Allergy Verified 12/11/22 10:06 [From Neosporin ([id number])] bacitracin zinc Allergy Verified 12/11/22 10:06 [From Neosporin ([id number])] latex Allergy Verified 12/11/22 10:06 neomycin sulfate Allergy Verified 12/11/22 10:06 [From Neosporin ([id number])] Penicillins Allergy Skin Rash Verified 12/11/22 10:06 polymyxin B Allergy Verified 12/11/22 10:06 [From Neosporin ([id number])] sumatriptan [From Imitrex] Allergy Verified 12/11/22 10:06 sumatriptan succinate Allergy Verified 12/11/22 10:06 [From Imitrex] Home Medications Medication Instructions Recorded Confirmed Type propranolol 20 mg tablet 20 mg PO BID #180 tabs 06/20/22 12/11/22 Rx ketoconazole 2 % shampoo 1 applic topical ONCE Scalp 08/08/22 12/11/22 History itching/scaling metronidazole 0.75 % topical cream 1 applic topical BID PRN 08/08/22 12/11/22 History Periorificial Dermatitis celecoxib 100 mg capsule (Celebrex) 100 mg PO BID #30 caps 10/10/22 12/11/22 Rx Exam Resp Percussion: percussion normal Cardio Rate: regular rate Rhythm: regular rhythm Results Last Vital Signs Temp 36.5 C 12/11/22 09:41 Pulse 57 L 12/11/22 09:41 Resp 18 12/11/22 09:41 BP 130/91 H 12/11/22 09:41 Pulse Ox 96 12/11/22 09:41
[2022-12-11] MEDS: ceFAZolin 2 GM/50 ML BAG IVPB (10:55)
[2022-12-11] MEDS: EPINEPHrine 30 MG/30 ML VIAL (11:15)
[2022-12-11] MEDS: Bupivacaine 0.5% Pres-Free 30 ML VIAL (11:15)
--- NOTE | 2022-12-11 11:19 | W.PM.DSUDISC ---
Date of service: 12/11/22 Time of Service: 11:22 Discharge Plan Disposition Patient Disposition: Home Condition: Good Discharge Details Reason For Visit: left knee arthroscopy Attending Provider: Rey Lira Primary Care Provider: Jo Ann May Home Meds and New Rx's Prescriptions: New hydrocodone-acetaminophen 5-325 mg tablet 1 tab PO Q6H PRN (Reason: pain) Qty: 10 0RF acetaminophen 500 mg tablet 1,000 mg PO TID Qty: 90 0RF Continued celecoxib [Celebrex] 100 mg capsule 100 mg PO BID Qty: 30 0RF propranolol 20 mg tablet 20 mg PO BID Qty: 180 0RF metronidazole 0.75 % cream 1 applic topical BID PRN (Reason: Periorificial Dermatitis) ketoconazole 2 % shampoo 1 applic topical ONCE Rx Instructions: Apply topically to the scalp and let sit for 5 minutes and then rinse thoroughly Discharge Instructions Stand Alone Forms: [facility] Knee Arthroscopy Referrals: Rey Lira MD [ [facility] STAFF PHYSICIAN] - Equipment/Supplies: Partial Weight Bearing Crutches Activity:: Activity as Tolerated Remove Dressings/Wound Care:: 72 hours Shower/Bathe:: 72 hours Diet:: As Tolerated Discharge Orders Discharge Orders: Discharge Order (Routine); Ordered 12/11/22 Ordered By: Josue Butler DS: Diagnosis Discharge Diagnosis (1) Tear of medial meniscus of left knee: Status: Acute
[2022-12-11] MEDS: ePHEDrine 25 MG/5 ML Syringe (11:45)
[2022-12-11] MEDS: HYDROmorphone 2 MG/ML SYR IVP ×3 (12:15→12:44)
--- NOTE | 2022-12-11 12:59 | W.PM.OP ---
Date of service: 12/11/22 Time of Service: 11:50 Operative Note Operative Note DATE OF PROCEDURE: 12/11/22 PRE-OP DIAGNOSIS: Left Knee Internal Derangement, Medial Meniscus Tear POST-OP DIAGNOSIS: other (Left Knee Medial Chondromalacia) SURGEON: Rey Lira ANESTHESIA TYPE: General LMA/ETT Refer to Anesthesia Record ESTIMATED BLOOD LOSS: 0 PATHOLOGY: none sent COMPLICATIONS: None Patient was transported to: PACU Patient's condition: stable Indications: I have seen Armin in clinic for symptoms of a meniscus tear. This was confirmed based on MRI and exam findings. Nonoperative measures were exhausted but disability and pain persisted. I discussed knee arthroscopy with meniscal intervention with the patient. I reviewed the risks of the procedure to include, but not limited to, bleeding, infection, pain, stiffness, damage to nerves or vessels, recurrence, blood clot. Despite these risks, the patient elected to proceed. Findings: A diagnostic arthroscopy was performed with the following findings: Suprapatellar Pouch: No significant inflammation, No loose bodies Medial Compartment: No apparent meniscal tear, Intact meniscal root, Grade II/III chondromalacia of the distal femur with a loose flap wtih Grade I changes of the central tibia, No loose bodies Notch: ACL and PCL were intact Lateral Compartment: No meniscal tear, Intact meniscal root, No significant chondromalacia or signs of arthritis, No loose bodies Patellofemoral Compartment: No significant chondromalacia, No apparent patellar maltracking Procedure Description: Armin was greeted in the preoperative holding area where the correct side was identified and marked. The consent was reviewed with the patient and signed. The history and physical was updated. All questions were answered. She was taken back to the operating room. The patient was placed into the supine position on the operating room table. All bony prominences were well padded. Prophylactic antibiotics in the form of Cefazolin were administered. The left leg was then prepped with Chloraprep and draped in a standard fashion with stockinette and extremity drape. A timeout to confirm correct identity, side and site, procedure, allergies, anesthesia, and medical concerns was performed. The leg was placed into a pneumatic leg arora, [id number]. A standard lateral portal was made at the lateral border of the patella tendon in line with the inferior pole of the patella, soft spot. The skin and deep tissue was incised sharply and the blunt trochar was inserted atraumatically. A diagnostic arthroscopy was performed and the findings are listed above. The suprapatellar pouch had no significant inflammatory change. The patellofemoral articulation showed no articular damage as well as good tracking. The lateral gutter had no loose bodies and the medial gutter had no loose bodies. The knee was brought into some valgus stress in extension to open the medial compartment. A medial portal was made, localized by a spinal needle. The portal was created with an #11 blade through skin and capsule under direct visualization avoiding any meniscal injury. A probe was then inserted into the medial compartment. The medial compartment was fully inspected. The chondral surface of the tibia showed some grade I chondromalacia of the central part of the tibia and the surface of the femur showed grade 2 and some potential grade III chondromalacia with a loose flap posteriorly about 3 mm in width. The medial meniscus had no meniscal tear. Cartilage surfaces were debrided of any flaps, leaving any intact fibers. Given the findings on the MRI of potential meniscal tear I did trephinate the meniscus with a spinal needle in this location. The notch was then inspected which showed an intact ACL and an intact PCL. The leg was then brought into a figure of 4 position. The lateral compartment was fully inspected with the arthroscope and a probe. The chondral surface of the lateral femur showed no significant chondromalacia. The chondral surface of the lateral tibia showed no significant chondromalacia. The lateral meniscus had no meniscal tear. The arthroscope was brought back into the suprapatellar pouch and the leg was in full extension. The knee was thoroughly irrigated with the arthroscopic fluid on high flow and pressure. Inflow was stopped and excess fluid was removed. The wounds were closed with 4-0 Nylon. They were dressed with Xeroform, 4x4 gauze, ABD pad, Kerlix and an KEHINDE wrap. A cryo-cuff was applied. The patient tolerated the procedure well and was returned to the Same Day Surgery area in a stable condition suffering no known complication.
--- NOTE | 2022-12-11 13:23 | W.ANESPOSTOP ---
Postoperative Evaluation Date, Time and Location Date Performed: 12/11/22 Time Performed: 13:23 Patient Location: Day Surgery Unit Vital Signs Most Recent Imported Vital Signs: Most Recent Vital Signs Temp Pulse Resp BP Pulse Ox 36.7 C 51 L 18 127/84 95 12/11/22 12:55 12/11/22 12:55 12/11/22 12:55 12/11/22 12:55 12/11/22 12:55 Pain Score Most Recent Pain Score: Most Recent Pain Score Pain Level 2 12/11/22 12:55 Assessment Mental Status: Awake (Alert & Oriented to Patient Baseline) Airway and Respiratory Function: Patent airway with normal (patient baseline) respiratory exam Cardiovascular Function: Hemodynamically Stable Hydration Status: Adequately Hydrated Nausea & Vomiting: No Nausea or Vomiting Pain: Pain is Moderate or Severe Postoperative Pain Management: Pain being addressed with medication Peripheral Nerve Block: Patient did not receive a nerve block
[2022-12-11] MEDS: diphenhydrAMINE 50 MG/ML VIAL 25 MG IVP (14:45)
[2022-12-11] MEDS: Normal Saline Flush 10 ML SYR IV (14:45)
--- NOTE | 2022-12-11 15:11 | SUR.PHASEI ---
Pt was exhibiting elevated pain levels while in PACU. Pt was medicated for pain as ordered. Pt requesting foot massage and oil massage, mint tea, bite block, stress balls to squeeze, and someone to apply continuous pressure to toes. Nursing was able to prop toes up with a pillow and elevate knee while in PACU as well as utilize a washcloth as a make shift squeeze ball. Pt was reporting nausea after waking up in PACU and anti-emetic was administered as ordered. Pt did not have any emesis while in PACU. Pt was requesting copious amounts of water for nausea and for pain as she stated it, watered down the pain. Pt consumed approx 240ccs of water while awake in PACU. When pt was transferred to phase II her pain was stated to be a 2/10 and VS were stable. Pt status reviewed with LINDSAY Brito and transfer to DSU approved.
--- NOTE | 2022-12-11 15:12 | NUR.NOTE ---
After assisting patient in to car and nurses returned to unit, patients came in to the registration office and told the registrar that her states her tongue was swelling up. Nursing alerted. Edis Paez RN went out with a wheel chair to bring patient to ER. Patient was holding her head back with tongue slightly protruded. No swelling noted. No audible upper airway wheezing noted. Color normal. No respiratory distress noted. Brought to ER. Report given to ER nurse. Yasmany Azevedo CRNA arrived on seen. Nursing Note:
== END 2022-12-11 14:52 | disposition home or self-care (01) ==
PROVIDERS: PCP Nurse Practitioner Family; Visit Provider Student in an Organized Health Care Education/Training Program
PROC: (CPT 29870; principal; 2022-12-11 12:00)
DX: S83.242A Other tear of medial meniscus, current injury, left knee, initial encounter (principal); X58.XXXA Exposure to other specified factors, initial encounter
CPT/HCPCS: 29881; J0690; J1100; J1170; J1200; J1885; J2405; J2704

== ENCOUNTER 2022-12-11 15:02 | Emergency (ER) | payer MEDICAID, SELFPAY ==
[2022-12-11] VITALS (10 sets, daily range): BP systolic 128–170; BP diastolic 80–126; PULSE 61–94; RESP 13–21; TEMP 36.4–37.1; O2SAT 92–99
--- NOTE | 2022-12-11 15:17 | DI.CT_ITS ---
Exam(s) CT HEAD WO EXAM: CT HEAD WO CLINICAL HISTORY: post op diff speaking, r/o stroke. TECHNIQUE: Imaging Protocol: Axial computed tomography images with coronal and sagittal reformatted images were created and reviewed COMPARISON: No exams were available for comparison FINDINGS: Ventricles and Extra axial spaces: Normal in size and morphology for the patient's age. Hemorrhage: None. Cerebral parenchyma: No evidence of an acute territorial infarct. Midline shift: None. Brainstem/Cerebellum: Normal. Calvarium: Normal. Visualized Paranasal sinuses/Mastoids: Clear. Soft Tissues: Unremarkable. IMPRESSION: 1. No acute intracranial process. 2. If findings persist, MRI of the brain may be obtained for further evaluation. 3. Findings were discussed with Dr. Valladares at 4:06 p.m. on 12/11/2022. RADIATION DOSE DELIVERED: 736.82mGy.cm Total DLP DATA REPOSITORY: All CT scans at this facility are submitted to the National Radiology Data Registry (NRDR) Dose Index Registry (DIR) with the [employer] ([employer]). RADIATION OPTIMIZATION: All CT scans at this facility use at least one of these dose optimization te chniques: automated exposure control; mA and/or kV adjustment per patient size (includes targeted exa ms where dose is matched to clinical indication); or iterative reconstruction.
--- NOTE | 2022-12-11 15:17 | DI.CT_ITS ---
Exam(s) CT NECK W EXAM: CT NECK W CLINICAL HISTORY: neck swelling, diff swallowing post surgery. TECHNIQUE: Imaging Protocol: Axial computed tomography images with coronal and sagittal reformatted images were created and reviewed. CONTRAST MATERIAL: Intravenous: Omnipaque 350 Contrast volume:100mL COMPARISON: No exams were available for comparison FINDINGS: Orbits and orbital soft tissues: Within normal limits. Visualized paranasal sinuses: Within normal limits. Nasopharynx: Within normal limits. Oropharynx: Within normal limits. Hypopharynx: Within normal limits. Larynx: Within normal limits. Retropharyngeal space: Within normal limits. Parotids/submandibular: Within normal limits. Thyroid gland: Within normal limits. Lymphadenopathy: There is scattered lymph nodes seen along the level one to level three all measurin g less than 8 mm in short axis diameter which are physiologic in nature. Trachea: Within normal limits. Lung apices: Within normal limits. Bones: Within normal limits for the patient's age. Carotids/Jugular: Within normal limits. Soft tissues: Within normal limits. IMPRESSION: 1. No acute abnormalities. 2. Findings were discussed with the emergency department at 4:11 p.m. on 12/11/2022. RADIATION DOSE DELIVERED: 452.01mGy.cm Total DLP 452.01mGy.cm Total DLP DATA REPOSITORY: All CT scans at this facility are submitted to the National Radiology Data Registry (NRDR) Dose Index Registry (DIR) with the [employer] (ACR). RADIATION OPTIMIZATION: All CT scans at this facility use at least one of these dose optimization te chniques: automated exposure control; mA and/or kV adjustment per patient size (includes targeted exa ms where dose is matched to clinical indication); or iterative reconstruction.
--- NOTE | 2022-12-11 15:25 | ED.GENADUL_ITS ---
Discharge Plan Disposition Patient Disposition: Home Discharge Details Clinical Impression: Adverse effects of medication Primary Care Provider: Jo Ann May ED Provider: Miguel Angel Valladares Home Meds and New Rx's Prescriptions: No Action celecoxib [Celebrex] 100 mg capsule 100 mg PO BID Qty: 30 0RF propranolol 20 mg tablet 20 mg PO BID Qty: 180 0RF metronidazole 0.75 % cream 1 applic topical BID PRN (Reason: Periorificial Dermatitis) ketoconazole 2 % shampoo 1 applic topical ONCE Rx Instructions: Apply topically to the scalp and let sit for 5 minutes and then rinse thoroughly hydrocodone-acetaminophen 5-325 mg tablet 1 tab PO Q6H PRN (Reason: pain) Qty: 10 0RF acetaminophen 500 mg tablet 1,000 mg PO TID Qty: 90 0RF Discharge Instructions Additional Instructions: At this time your work-up has returned and is normal and very reassuring. Thankfully there is no evidence of anaphylactic reaction, or other significant abnormality. Please monitor your symptoms closely. Follow-up closely with your primary care provider. If you notice any worsening of your symptoms, or any new symptoms such as vomiting, diarrhea, fever, chills, shortness of breath, chest pain, numbness, weakness, or fainting , please return immediately to the emergency department for reevaluation. Please follow up with your primary care provider as soon as possible for reassessment and reevaluation. As always, it was a pleasure participating in your medical care today. Referrals: Jo Ann May NP [Primary Care Provider] - Rey Lira MD [ [facility] STAFF PHYSICIAN] - Discharge Data Discharge Date/Time-TO BE ENTERED AT DEPARTURE: 12/11/22 16:52 Medical Decision Making 52-year-old female with a past medical history multiple allergies, migraines, irritable bowel syndrome, hypertension, left knee pain, who just got out of surgery about 30 minutes ago for his left knee arthroscopy, presents today for various symptoms. Per anesthesia the patient was in PACU and was complaining of notable pain in her left knee, she was given Dilaudid and shortly thereafter began complaining of itchiness, difficulty swallowing, and difficulty speaking. However the symptoms resolved after Benadryl was given, and the patient requested to be discharged. She then left PACU and came to the emergency department for assessment as her symptoms seemingly continued immediately upon leaving the PACU area. Patient denies any history of stroke. She denies any history of anaphylaxis but has had reactions to various medications that were not anaphylactoid. She currently complains of pain in her left knee, intermittent difficulty speaking, and swelling in her tongue. She denies any vomiting or diarrhea. She does admit to intermittent itching. No other complaints at this time. No other modifying factors. Anesthesia is here at bedside and states that the procedure, and time in the PACU was otherwise completely unremarkable, with no significant vital sign changes. Exam demonstrates somewhat atypical movements. At moments the patient is lying still and able to interact normally, and then shortly thereafter she exhibits stretching, rapid itching, and some movements of the mouth that almost look like mild tardive dyskinesia. Initially when the patient arrived she was not able to speak, however within the first 2 or 3 minutes of her being here that rapidly transition to being able to speak normally. Physical exam shows no evidence of hives or rash, no angioedema of the tongue. The tongue does look dry though. No swelling of the neck. Interestingly she shows no signs of focal neurologic deficits whatsoever though. Normal [id number], no dysdiadochokinesia. No dysmetria. She otherwise looks well. I am uncertain as to what the exact cause of her symptomatology is. No clear evidence of a stroke based on neurologic assessment at this time especially with her complete resolution of speech with rather rapidly. There may be a component of a psychosomatic component from the Benadryl however first I do feel that we may need to make sure we rule out other concerning causes. At this time there is no evidence of anaphylaxis whatsoever no indication for epinephrine. Out of an abundance of concern/caution we will give Solu-Medrol and fluids and rehydrate as she has already received Benadryl she may be having a very mild reaction. Get a CT scan of the head to rule out bleed. We will monitor closely and reassess. Symptoms resolved completely before patient even went to CAT scan. Her total symptoms only lasted a few minutes. Inconsistent with stroke. Symptoms at this time are more consistent with mild reaction to the Benadryl. [address] scans have returned of the head and neck, no abnormalities whatsoever. Patient continues to have complete resolution of her symptomatology. She feels well and would like to go home. Symptoms on clinical review appear inconsistent with stroke, or anaphylaxis, they may have been an emergence reaction from anesthesia, or potentially a medication side effect from the Dilaudid or Benadryl. It also may have been a component of a complex migraine. Patient has no history of stroke, and she is low risk otherwise. Additionally the clinical history and the atypical fluctuation of the symptoms is certainly inconsistent with an acute ischemic etiology from an intracranial standpoint. Patient otherwise feels well and she is requesting discharge. She continues to demonstrate excellent speech, no focal neurologic deficits or other abnormalities. Patient will be discharged home with her who is at bedside. Discussed red flags for which to return. I have extensively reviewed the treatment plan and discharge instructions with the patient and their family. I have addressed all patient concerns at this time. The patient and family was made aware of what symptoms to monitor for that would warrant a return to the emergency department. Discussed the plan with the patient and family, they demonstrate verbal understanding and agreement with our assessment and plan at this time. The documentation in this chart was dictated using [employer] dictation software. Please excuse any dictation errors. FINDINGS: Orbits and orbital soft tissues: Within normal limits. Visualized paranasal sinuses: Within normal limits. Nasopharynx: Within normal limits. Oropharynx: Within normal limits. Hypopharynx: Within normal limits. Larynx: Within normal limits. Retropharyngeal space: Within normal limits. Parotids/submandibular: Within normal limits. Thyroid gland: Within normal limits. Lymphadenopathy: There is scattered lymph nodes seen along the level one to level three all measuring less than 8 mm in short axis diameter which are physiologic in nature. Trachea: Within normal limits. Lung apices: Within normal limits. Bones: Within normal limits for the patient's age. Carotids/Jugular: Within normal limits. Soft tissues: Within normal limits. IMPRESSION: 1. No acute abnormalities. 2. Findings were discussed with the emergency department at 4:11 p.m. on 12/11/2022. FINDINGS: Ventricles and Extra axial spaces: Normal in size and morphology for the patient's age. Hemorrhage: None. Cerebral parenchyma: No evidence of an acute territorial infarct. Midline shift: None. Brainstem/Cerebellum: Normal. Calvarium: Normal. Visualized Paranasal sinuses/Mastoids: Clear. Soft Tissues: Unremarkable. IMPRESSION: 1. No acute intracranial process. 2. If findings persist, MRI of the brain may be obtained for further evaluation. 3. Findings were discussed with Dr. Valladares at 4:06 p.m. on 12/11/2022. HPI General Date/Time Provider Initiated Documentation: 12/11/22 15:17 . HPI Narrative: 52-year-old female with a past medical history multiple allergies, migraines, irritable bowel syndrome, hypertension, left knee pain, who just got out of surgery about 30 minutes ago for his left knee arthroscopy, presents today for various symptoms. Per anesthesia the patient was in PACU and was complaining of notable pain in her left knee, she was given Dilaudid and shortly thereafter began complaining of itchiness, difficulty swallowing, and difficulty speaking. However the symptoms resolved after Benadryl was given, and the patient requested to be discharged. She then left PACU and came to the emergency department for assessment as her symptoms seemingly continued immediately upon leaving the PACU area. Patient denies any history of stroke. She denies any history of anaphylaxis but has had reactions to various medications that were not anaphylactoid. She currently complains of pain in her left knee, intermittent difficulty speaking, and swelling in her tongue. She d enies any vomiting or diarrhea. She does admit to intermittent itching. No other complaints at this time. No other modifying factors. Anesthesia is here at bedside and states that the procedure, and time in the PACU was otherwise completely unremarkable, with no significant vital sign changes. Related Data Home Medications Medication Instructions Recorded Confirmed propranolol 20 mg tablet 20 mg PO BID #180 tabs 06/20/22 12/11/22 ketoconazole 2 % shampoo 1 applic topical ONCE Scalp 08/08/22 12/11/22 itching/scaling metronidazole 0.75 % topical cream 1 applic topical BID PRN 08/08/22 12/11/22 Periorificial Dermatitis celecoxib 100 mg capsule (Celebrex) 100 mg PO BID #30 caps 10/10/22 12/11/22 acetaminophen 500 mg tablet 1,000 mg PO TID #90 tabs 12/11/22 hydrocodone 5 mg-acetaminophen 325 1 tab PO Q6H PRN pain #10 tabs 12/11/22 mg tablet Previous Rx's Medication Instructions Recorded propranolol 20 mg tablet 20 mg PO BID #180 tabs 06/20/22 celecoxib 100 mg capsule (Celebrex) 100 mg PO BID #30 caps 10/10/22 acetaminophen 500 mg tablet 1,000 mg PO TID #90 tabs 12/11/22 hydrocodone 5 mg-acetaminophen 325 1 tab PO Q6H PRN pain #10 tabs 12/11/22 mg tablet Allergies Allergy/AdvReac Type Severity Reaction Status Date / Time fentanyl Allergy Intermediate unable to Verified 12/11/22 10:06 speak midazolam Allergy Intermediate unable to Verified 12/11/22 10:06 speak bacitracin Allergy Verified 12/11/22 10:06 [From Neosporin ([id number])] bacitracin zinc Allergy Verified 12/11/22 10:06 [From Neosporin ([id number])] latex Allergy Verified 12/11/22 10:06 neomycin sulfate Allergy Verified 12/11/22 10:06 [From Neosporin ([id number])] Penicillins Allergy Skin Rash Verified 12/11/22 10:06 polymyxin B Allergy Verified 12/11/22 10:06 [From Neosporin ([id number])] sumatriptan [From Imitrex] Allergy Verified 12/11/22 10:06 sumatriptan succinate Allergy Verified 12/11/22 10:06 [From Imitrex] General BRYANNA: 3 Review of Systems All systems reviewed & are unremarkable except as noted in HPI and below PFSH All Active Problems (Updated 12/11/22 @ 16:40 by Miguel Angel Valladares DO) Atopic dermatitis (Chronic) Hyperlipidemia, unspecified (Chronic 02/08/18) 09/2022 labs: 10-year ASCVD = 2.3% Migraine without status migrainosus (Chronic) Uterine prolapse (Chronic) IBS (irritable bowel syndrome) (Chronic) Essential hypertension (Chronic) Constipation (Chronic) Knee injury (Acute) Obesity (Chronic) Internal derangement of left knee (Acute) Tear of medial meniscus of left knee (Acute) Adverse effects of medication (Acute) Medical History A-fib Anemia Arthritis of right acromioclavicular joint (01/16/18) BCC (basal cell carcinoma of skin) Depression Digital mucous cyst of finger of right hand R middle finger; [facility] [place] Ortho (Dr. Villarreal) YUMIKO (generalized anxiety disorder) Melanoma rt posterior thigh s/p excision Periorificial dermatitis Right rotator cuff tendinitis (01/16/18) Rosacea Sebaceous hyperplasia Seborrheic keratoses Tendinopathy of right biceps tendon (01/16/18) Viral warts Surgical History section (~2010) H/O basal cell carcinoma excision (02/22/21) right mid back H/O shoulder surgery Right shoulder tendon repair Hx of melanoma excision (~1995) rgy posterior thigh Family History Mother , Colon CA at age 55. 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[employer] Parent Pets and animals: Yes Pets and animals: cat(s), dog(s) and horse(s) Sexually active: Yes Do you think of yourself as: straight/heterosexual Current gender identity: female What is your relationship status?: How often do you talk on the phone with friends or family?: never How often do you get together with friends or relatives?: three or more times per week Do you belong to any clubs or organized social groups?: yes Panel score (0-1 are the most socially isolated patients): 3 What type of physical activity do you participate in: walking Frequency: daily Seatbelt use: always Helmet use: Yes Drive intox or ride w/intox waste collection driver: No Do you feel safe at home: Yes Do you feel safe in your relationship?: Yes Exam Narrative Exam Narrative: 1.Const: Well-nourished, Well-developed, appearing stated age 2.Eyes: PERRL, no conjunctival injection, and symmetrical lids. 3.ENT: Atraumatic external nose and ears. Moist MM. Neck: Symmetric, trachea midline, No thyromegaly. No evidence of angioedema. No signs of airway compromise. No swelling in the posterior oropharynx. 4.CVS: +S1/S2, No murmurs or gallops. Peripheral pulses 2+ and equal in all extremities. Brisk capillary refill in all extremities. 5.RESP: Unlabored respiratory effort. Clear to auscultation bilaterally. No wheezes rales or rhonchi 6.GI: Soft, Nontender/Nondistended, No hepatosplenomegaly. No guarding or rebound. 7.MSK: Normocephalic/Atraumatic, Extremities w/o deformity or ttp No cyanosis or clubbing, left knee is bandaged postoperatively. No swelling or redness. Movement is limited in the left knee obviously secondary to the postoperative state. She does have some mild pain there. 8.Skin: Warm, Dry. No rashes or lesions. No hives. Physical exam negative rash. 9.Neuro: japanese professor II-XII grossly intact. Sensation grossly intact, no focal neurologic deficits. All 6 cardinal planes of vision are fully intact. No evidence of rotatory or vertical nystagmus. The patient demonstrated a normal [id number]-tloj-cslvre, good dexterity. There was no evidence of dysdiadochokinesia. Patient was able to ambulate without difficulty. There was no wide-based gait. Romberg testing was normal. Tiez-xm-ulpr testing was normal. Sensation was intact bilaterally as well as muscle strength bilaterally for all extremities. Patient was able to verbalize butter cup with no slurring, or miss pronunciation. 10.Psych: (AAO) x3. Appropriate mood and affect
[2022-12-11] MEDS: methylPREDNISolone SUCC 125 MG VIAL IVP (15:36)
[2022-12-11 15:38] LABS: Abs Immature Grans 0.03 10^3/uL (0.0-0.06); Absolute Basophil Count 0.03 10^3/uL (0.0-0.2); Absolute Eosinophil Count 0.02 10^3/uL (0.0-0.7); Basophils % 0.4; Eosinophils % 0.3; HCT 41.2 % (36.0-46.0); HGB 13.7 g/dL (11.2-15.7); Immature Grans % 0.4; Lymphocytes % 16.3; MCH 28.5 pg (27.0-33.0); MCHC 33.3 % (32.0-36.0); MCV 86 fL (80-95); MPV 8.6 fL (8.0-11.0); Monocytes % 1.3; Neutrophils % 81.3; Platelet Count 283 10^3/uL (130-400); RDW 12.3 % (11.7-14.6); RDW-SD 38.8 fL; WBC 7.98 10^3/uL (4.4-10.8)
[2022-12-11 15:52] LABS: ALT 27 U/L (14-59); AST 18 U/L (15-37); Albumin 4.1 g/dL (3.4-5.0); Alkaline Phosphatase 74 U/L (46-116); Anion Gap 9.9 mmol/L (3-11); BUN 13 mg/dL (7-18); Bilirubin, Total 0.3 mg/dL (0.2-1.0); CO2 26.1 mmol/L (21.0-32.0); CREATININE 1.1 mg/dL (0.55-1.02); Calcium 9.1 mg/dL (8.5-10.1); Chloride 97 mmol/L (98-107); Estimated GFR 60.46 (mL/min/1.73m2); Glucose 139 mg/dL (74-106); Potassium 4.1 mmol/L (3.5-5.1); Sodium 133 mmol/L (136-145); Total Protein 8.6 g/dL (6.4-8.2)
[2022-12-11] MEDS: Omnipaque 350 MG/ML 100 ML BTL IJ (15:53)
[2022-12-11] MEDS: Normal Saline - Diluent 50 ML VIAL IJ (15:53)
[2022-12-11] MEDS: Normal Saline 500 ML IV (16:09)
== END 2022-12-11 16:52 | disposition home or self-care (01) ==
PROVIDERS: Emergency Provider Student in an Organized Health Care Education/Training Program; PCP Nurse Practitioner Family
DX: T40.2X5A Adverse effect of other opioids, initial encounter (principal); R22.1 Localized swelling, mass and lump, neck; Z98.890 Other specified postprocedural states
CPT/HCPCS: 36415; 70491; 80053; 96361; 96374; 99284; 99285; 70450; 85025; J2930; J3490

== ENCOUNTER 2024-04-05 14:04 | Outpatient (CLI) | payer BC, SELFPAY ==
[2024-04-05 19:07] LABS: HCG Quant, Pregnancy 177 mIU/mL (1-3)
== END 2024-04-05 14:05 | disposition home or self-care (01) ==
LOC: LBO 04-14 14:05
PROVIDERS: PCP Nurse Practitioner; Visit Provider Nurse Practitioner
DX: N91.2 Amenorrhea, unspecified (principal)
CPT/HCPCS: 36415; 84702

== ENCOUNTER 2024-04-07 01:55 | Outpatient (CLI) | payer BC, SELFPAY ==
[2024-04-07 12:40] LABS: TSH (W/Ref FT4) 2.16 uIU/mL (0.36-3.74)
== END 2024-04-07 01:56 | disposition home or self-care (01) ==
LOC: LOS 01:56
PROVIDERS: PCP Nurse Practitioner; Visit Provider Obstetrics & Gynecology
DX: N92.0 Excessive and frequent menstruation with regular cycle (principal)
CPT/HCPCS: 36415; 84443

== ENCOUNTER 2024-04-26 12:35 | Outpatient (CLI) | payer BC, SELFPAY | END 2024-04-26 12:36 | disposition home or self-care (01) | LOC: LBO 12:35 | PROVIDERS: PCP Nurse Practitioner; Visit Provider Advanced Practice Midwife | DX: Z34.91 Encounter for supervision of normal pregnancy, unspecified, first trimester (principal); O20.9 Hemorrhage in early pregnancy, unspecified | CPT/HCPCS: 36415; 86850; 86900; 86901; 84702 ==

== ENCOUNTER 2024-05-24 03:14 | Outpatient (CLI) | payer BC, MEDICAID, SELFPAY ==
[2024-05-24 15:26] LABS: Abs Immature Grans 0.01 10^3/uL (0.0-0.06); Absolute Basophil Count 0.01 10^3/uL (0.0-0.2); Absolute Eosinophil Count 0.07 10^3/uL (0.0-0.7); Absolute Lymphocyte Count 1.43 10^3/uL (1.2-3.4); Absolute Monocyte Count 0.28 10^3/uL (0.1-0.8); Absolute Neutrophil Count 4.48 10^3/uL (1.2-6.7); Basophils % 0.2 %; Eosinophils % 1.1 %; HCT 38.9 % (36.0-46.0); HGB 12.9 g/dL (11.2-15.7); Immature Grans % 0.2 %; Lymphocytes % 22.8 %; MCH 29.3 pg (27.0-33.0); MCHC 33.2 % (32.0-36.0); MCV 88 fL (80-95); MPV 8.3 fL (8.0-11.0); Monocytes % 4.5 %; Neutrophils % 71.2 %; Platelet Count 247 10^3/uL (130-400); RDW 13.1 % (11.7-14.6); RDW-SD 42.8 fL; WBC 6.28 10^3/uL (4.4-10.8)
[2024-05-24 18:27] LABS: Lab Add On Test DONE
[2024-05-24 18:57] LABS: ALT 12 U/L (14-59); AST 10 U/L (15-37); Albumin 3.5 g/dL (3.4-5.0); Alkaline Phosphatase 55 U/L (46-116); Anion Gap 10.6 mmol/L (3-11); BUN 7 mg/dL (7-18); Bilirubin, Total 0.26 mg/dL (0.2-1.0); CO2 24.4 mmol/L (21.0-32.0); CREATININE 0.8 mg/dL (0.55-1.02); Calcium 9.1 mg/dL (8.5-10.1); Chloride 100 mmol/L (98-107); Estimated GFR 88.05 (mL/min/1.73m2); Glucose 120 mg/dL (74-106); Potassium 3.6 mmol/L (3.5-5.1); Sodium 135 mmol/L (136-145); Total Protein 7.4 g/dL (6.4-8.2)
[2024-05-24 19:56] LABS: Glucose,1 Hr (Glucola) 120 mg/dL (80-140)
[2024-05-26 09:13] LABS: Rubella IgG Ab (UVM) Positive (See Note); Varicella IgG Antibody Positive (See Note)
== END 2024-05-24 03:15 | disposition home or self-care (01) ==
LOC: LBO 03:14
PROVIDERS: Advanced Practice Midwife; PCP Nurse Practitioner; Visit Provider Advanced Practice Midwife
DX: Z34.91 Encounter for supervision of normal pregnancy, unspecified, first trimester (principal); I10 Essential (primary) hypertension
CPT/HCPCS: 36415; 80053; 82950; 86787; 86850; 86900; 86901; 85025; 86762

== ENCOUNTER 2024-05-24 16:26 | Outpatient (REF) | payer BC, MEDICAID, SELFPAY ==
[2024-05-24 19:55] LABS: COMMENT (LAB VIEW ONLY) 90.03 mg/dL; PROTEIN 10.7 mg/dL; Prot/Crea Ur Ratio 0.11
[2024-05-24 20:06] LABS: Lab Add On Test DONE
[2024-06-02 23:06] LABS: Buprenorphine Negative ng/mL (Cutoff: 5.0); Norbuprenorphine Negative ng/mL (Cutoff: 2.5)
== END 2024-05-24 16:27 | disposition home or self-care (01) ==
LOC: LBN 16:26
PROVIDERS: PCP Nurse Practitioner; Visit Provider Advanced Practice Midwife
DX: I10 Essential (primary) hypertension (principal); Z34.91 Encounter for supervision of normal pregnancy, unspecified, first trimester; Z3A.11 11 weeks gestation of pregnancy
CPT/HCPCS: 80348; 87491; 87591; 82565; 84156; 87086

== ENCOUNTER 2024-06-25 12:29 | Outpatient (REF) | payer MEDICAID, SELFPAY ==
[2024-06-28 11:56] LABS: Chlamydia Result Negative (Negative); GC Result Negative (Negative)
== END 2024-06-25 12:30 | disposition home or self-care (01) ==
LOC: LBN 12:29
PROVIDERS: PCP Nurse Practitioner; Visit Provider Advanced Practice Midwife
DX: Z34.92 Encounter for supervision of normal pregnancy, unspecified, second trimester (principal); Z3A.15 15 weeks gestation of pregnancy
CPT/HCPCS: 87491; 87591

== ENCOUNTER 2024-06-28 03:30 | Outpatient (CLI) | payer MEDICAID, SELFPAY ==
[2024-07-07 14:39] LABS: AFP 33.2 ng/mL; Cigarette smoking status non-Smoker; GA used in risk estimate Scan estimate; IVF Pregnancy Yes; Initial or repeat testing Initial testing; Insulin dependent diabetes No; Maternal Weight 191 lbs; Number of Fetuses 1; Prev Pregnancy w/NTD No; RECOMMENDED FOLLOW UP None.; Results Summary Normal risk
== END 2024-06-28 03:31 | disposition home or self-care (01) ==
LOC: LBO 03:30
PROVIDERS: PCP Nurse Practitioner; Visit Provider Advanced Practice Midwife
DX: Z34.91 Encounter for supervision of normal pregnancy, unspecified, first trimester (principal)
CPT/HCPCS: 36415; 82105

== ENCOUNTER 2024-09-16 02:48 | Outpatient (CLI) | payer MEDICAID, SELFPAY ==
[2024-09-16 13:48] LABS: HCT 33.5 % (36.0-46.0); HGB 11.3 g/dL (11.2-15.7); MCH 30.7 pg (27.0-33.0); MCHC 33.7 % (32.0-36.0); MCV 91 fL (80-95); MPV 8.9 fL (8.0-11.0); Platelet Count 261 10^3/uL (130-400); RBC 3.68 10^6/uL (3.93-5.22); RDW 13.9 % (11.7-14.6); RDW-SD 46.7 fL; WBC 9.03 10^3/uL (4.4-10.8)
[2024-09-16 14:06] LABS: Glucose,1 Hr (Glucola) 126 mg/dL (80-140)
== END 2024-09-16 02:49 | disposition home or self-care (01) ==
LOC: LBO 02:48
PROVIDERS: PCP Nurse Practitioner; Visit Provider Obstetrics & Gynecology
DX: Z34.92 Encounter for supervision of normal pregnancy, unspecified, second trimester
CPT/HCPCS: 36415; 82950; 85027

== ENCOUNTER 2024-10-22 09:18 | Outpatient (CLI) | payer MEDICAID, SELFPAY ==
[2024-10-22 09:52] VITALS: BP 115/69; PULSE 63; TEMP 36.6
[2024-10-22 12:16] VITALS: BP 115/69; PULSE 63; TEMP 36.6
--- NOTE | 2024-10-22 12:16 | W.OBNST ---
Date of service: 11/03/24 Time of Service: 12:16 NST Evaluation Reason for NST Reasons for Nonstress Test: ADVANCED MATERNAL AGE Gestational Age Gestational Age in Weeks and Days: 32 Weeks and 4Days Test and Monitor Explained Test/Monitor Explained: Test Explained Vital Signs Blood Pressure: 115/69 Pulse: 63 Temperature: 97.9 F NST Information Date on Monitor: 10/22/24 Time on Monitor: 09:58 Date off Monitor: 10/22/24 Time off Monitor: 12:01 Total Time on Monitor: 123 NST Evaluation Patient States Movement: Present FHR Baseline: 140 Variability: Moderate 6-25 bpm NST Results: Reactive Note Ultrasound Done: N/A. NST Note Note: Category 1, reactive nonstress test at 32 weeks after prolonged monitoring. NST Reviewed and Verified by: Shamika Morin
== END 2024-10-22 12:02 ==
LOC: BCD 09:19 → OBS 09:45
PROVIDERS: PCP Nurse Practitioner; Visit Provider Obstetrics & Gynecology
DX: O09.523 Supervision of elderly multigravida, third trimester (principal); Z3A.32 32 weeks gestation of pregnancy
CPT/HCPCS: 59025

== ENCOUNTER 2024-10-26 08:07 | Outpatient (CLI) | payer MEDICAID, SELFPAY ==
[2024-10-26 09:19] VITALS: BP 138/81; PULSE 88; TEMP 36.7
--- NOTE | 2024-10-27 10:30 | W.OBNST ---
Date of service: 10/26/24 Time of Service: 12:00 NST Evaluation Reason for NST Reasons for Nonstress Test: ADVANCED MATERNAL AGE Gestational Age Gestational Age in Weeks and Days: 33 Weeks and 1Days Test and Monitor Explained Test/Monitor Explained: Test Explained, Monitor Explained and Patient Verbalized Understanding Vital Signs Blood Pressure: 138/81 Pulse: 88 Temperature: 98.1 F NST Information Date on Monitor: 10/26/24 Time on Monitor: 09:00 Date off Monitor: 10/26/24 Time off Monitor: 12:28 Total Time on Monitor: 208 NST Interventions: PO Hydration, Meal Given and Reposition Patient NST Evaluation Patient States Movement: Present FHR Baseline: 145 Variability: Moderate 6-25 bpm Accelerations: 10x10 Decelerations: Variable NST Results: Questionable Note Ultrasound Done: Biophysical Profile Reason for Biophysical Profile: Non Reactive NST. Provider that performed the study: Laurita Portillo Amniotic Fluid: 2 Largest Vertical Pocket: 8.2 Muscle Tone: 2 Body Movements: 2 Breathing Movements: 2 NST Results: Questionable Total Biophysical Profile Score: 8 Other Pertinent Findings: Presentation (Vtx) Coding for Biophysical Profile w/NST: Completed Exam. NST Note Note: Due NST not being technically reactive a BPP was performed which was 8/10 with lots of movement and clearly adequate fluid levels. Pt returns Fri for another BPP. NST Reviewed and Verified by: Laurita Portillo
[2024-10-27 10:33] VITALS: BP 138/81; PULSE 88; TEMP 36.7
== END 2024-10-26 12:30 | disposition home health service (06) ==
LOC: BCD 08:09 → OBS 09:04
PROVIDERS: PCP Nurse Practitioner; Visit Provider Obstetrics & Gynecology
DX: O09.523 Supervision of elderly multigravida, third trimester (principal); O36.8330 Maternal care for abnormalities of the fetal heart rate or rhythm, third trimester, not applicable or unspecified; Z3A.33 33 weeks gestation of pregnancy
CPT/HCPCS: 59025; 76818

== ENCOUNTER 2024-10-29 08:34 | Outpatient (CLI) | payer MEDICAID, SELFPAY ==
[2024-10-29 08:46] VITALS: BP 115/74; PULSE 67; TEMP 36.5
[2024-10-29 09:22] VITALS: BP 115/74; PULSE 67
--- NOTE | 2024-10-29 13:00 | W.OBNST ---
Date of service: 10/29/24 Time of Service: 13:00 NST Evaluation Reason for NST Reasons for Nonstress Test: ADVANCED MATERNAL AGE Gestational Age Gestational Age in Weeks and Days: 33 Weeks and 4Days Test and Monitor Explained Test/Monitor Explained: Test Explained, Monitor Explained and Patient Verbalized Understanding Vital Signs Blood Pressure: 115/74 Pulse: 67 Temperature: 97.7 F Urine Results Urine Protein: Negative Urine Ketones: Negative Urine Glucose: Negative Urine Blood: Positive NST Information Date on Monitor: 10/29/24 Time on Monitor: 09:19 Date off Monitor: 10/29/24 Time off Monitor: 10:28 Total Time on Monitor: 69 NST Interventions: PO Hydration and Other Contraction Frequency: 0 NST Evaluation Patient States Movement: Present FHR Baseline: 135 Variability: Moderate 6-25 bpm Accelerations: 15x15 Decelerations: None NST Results: Reactive Note Ultrasound Done: N/A. NST Note Note: NST reactive. Patient reports good movement. She recently had an ultrasound at [facility] which showed the fetus in the vertex position. On Dick's exam today I also confirmed a vertex presentation. Patient will continue with twice weekly NSTs. She was counseled regarding the signs and symptoms of labor. NST Reviewed and Verified by: Brooke Ovalles
[2024-10-29 13:01] VITALS: BP 115/74; PULSE 67; TEMP 36.5
== END 2024-10-29 10:49 ==
LOC: BCD 08:35 → OBS 08:45
PROVIDERS: PCP Nurse Practitioner; Visit Provider Obstetrics & Gynecology
DX: O09.523 Supervision of elderly multigravida, third trimester (principal); Z3A.33 33 weeks gestation of pregnancy
CPT/HCPCS: 59025

== ENCOUNTER 2024-11-02 07:17 | Outpatient (CLI) | payer MEDICAID, SELFPAY ==
[2024-11-02 09:18] VITALS: BP 120/79; PULSE 64; TEMP 36.5
[2024-11-02 09:50] VITALS: BP 120/79; PULSE 64
[2024-11-02 11:02] VITALS: BP 120/79; PULSE 64; TEMP 36.5
--- NOTE | 2024-11-02 11:02 | W.OBNST ---
Date of service: 11/02/24 Time of Service: 11:02 NST Evaluation Reason for NST Reasons for Nonstress Test: ADVANCED MATERNAL AGE Gestational Age Gestational Age in Weeks and Days: 34 Weeks and 1Days Test and Monitor Explained Test/Monitor Explained: Test Explained, Monitor Explained and Patient Verbalized Understanding Vital Signs Blood Pressure: 120/79 Pulse: 64 Temperature: 97.7 F NST Information Date on Monitor: 11/02/24 Time on Monitor: 09:11 Date off Monitor: 11/02/24 Time off Monitor: 10:15 Total Time on Monitor: 64 NST Interventions: PO Hydration NST Evaluation Patient States Movement: Present FHR Baseline: 140 Variability: Moderate 6-25 bpm Accelerations: 15x15 Decelerations: None NST Results: Reactive Note Ultrasound Done: N/A. NST Note Note: Category 1, reactive nonstress test. NST Reviewed and Verified by: Shamika Morin
== END 2024-11-02 10:25 | disposition other institution (70) ==
LOC: BCD 07:17 → OBS 09:16
PROVIDERS: PCP Nurse Practitioner; Visit Provider Obstetrics & Gynecology
DX: O09.523 Supervision of elderly multigravida, third trimester (principal); Z3A.34 34 weeks gestation of pregnancy
CPT/HCPCS: 59025

== ENCOUNTER 2024-11-05 07:57 | Outpatient (CLI) | payer MEDICAID, SELFPAY ==
[2024-11-05 09:13] VITALS: BP 111/77; PULSE 65; TEMP 37
[2024-11-05 09:42] VITALS: BP 111/77; PULSE 65
[2024-11-05 16:55] VITALS: BP 111/77; PULSE 65; TEMP 37
--- NOTE | 2024-11-05 16:55 | W.OBNST ---
Date of service: 11/05/24 Time of Service: 10:00 NST Evaluation Reason for NST Reasons for Nonstress Test: ADVANCED MATERNAL AGE Gestational Age Gestational Age in Weeks and Days: 34 Weeks and 4Days Test and Monitor Explained Test/Monitor Explained: Test Explained, Monitor Explained and Patient Verbalized Understanding Vital Signs Blood Pressure: 111/77 Pulse: 65 Temperature: 98.6 F NST Information Date on Monitor: 11/05/24 Time on Monitor: 09:10 Date off Monitor: 11/05/24 Time off Monitor: 10:00 Total Time on Monitor: 50 NST Interventions: PO Hydration NST Evaluation Patient States Movement: Present FHR Baseline: 135 Variability: Moderate 6-25 bpm Accelerations: 15x15 Decelerations: None NST Results: Reactive Note Ultrasound Done: N/A. NST Note NST Reviewed and Verified by: Laurita Portillo
== END 2024-11-05 10:40 ==
LOC: BCD 07:58 → OBS 09:12
PROVIDERS: PCP Nurse Practitioner; Visit Provider Obstetrics & Gynecology
DX: O09.523 Supervision of elderly multigravida, third trimester (principal); Z3A.34 34 weeks gestation of pregnancy
CPT/HCPCS: 59025

== ENCOUNTER 2024-11-09 06:36 | Outpatient (CLI) | payer MEDICAID, SELFPAY ==
[2024-11-09 09:06] VITALS: BP 133/83; PULSE 63; TEMP 36.8
[2024-11-09 09:25] VITALS: BP 133/83; PULSE 63
--- NOTE | 2024-11-19 11:12 | W.OBNST ---
Date of service: 11/09/24 Time of Service: 11:12 NST Evaluation Reason for NST Reasons for Nonstress Test: ADVANCED MATERNAL AGE Gestational Age Gestational Age in Weeks and Days: 36 Weeks and 4Days Test and Monitor Explained Test/Monitor Explained: Test Explained, Monitor Explained and Patient Verbalized Understanding Vital Signs Blood Pressure: 133/83 Pulse: 63 Temperature: 98.2 F NST Information Date on Monitor: 11/09/24 Time on Monitor: 09:10 Date off Monitor: 11/09/24 Time off Monitor: 09:38 Total Time on Monitor: 28 NST Interventions: PO Hydration NST Evaluation Patient States Movement: Present FHR Baseline: 135 Variability: Moderate 6-25 bpm Accelerations: 15x15 Decelerations: None NST Results: Reactive Note Ultrasound Done: N/A. NST Note Note: Routine surveillance. Category 1 NST. Reactive strip. NST Reviewed and Verified by: Shamika Morin
[2024-11-19 11:13] VITALS: BP 133/83; PULSE 63; TEMP 36.8
== END 2024-11-09 09:40 | disposition other institution (70) ==
LOC: BCD 06:38 → OBS 09:05
PROVIDERS: PCP Nurse Practitioner; Visit Provider Obstetrics & Gynecology
DX: O09.523 Supervision of elderly multigravida, third trimester (principal); Z3A.36 36 weeks gestation of pregnancy
CPT/HCPCS: 59025

== ENCOUNTER 2024-11-12 07:25 | Outpatient (CLI) | payer MEDICAID, SELFPAY ==
[2024-11-12 09:13] VITALS: BP 126/84; PULSE 68; TEMP 36.5
[2024-11-12 09:34] VITALS: BP 126/84; PULSE 68
--- NOTE | 2024-11-12 12:40 | PDOC.NST_ITS ---
Date of service: 11/12/24 Time of Service: 12:40 NST Evaluation Reason for NST Reasons for Nonstress Test: ADVANCED MATERNAL AGE Gestational Age Gestational Age in Weeks and Days: 35 Weeks and 4Days Test and Monitor Explained Test/Monitor Explained: Test Explained, Monitor Explained and Patient Verbalized Understanding Vital Signs Blood Pressure: 126/84 Pulse: 68 Temperature: 97.7 F NST Information Date on Monitor: 11/12/24 Time on Monitor: 09:17 Date off Monitor: 11/12/24 Time off Monitor: 10:27 Total Time on Monitor: 70 NST Interventions: PO Hydration Contraction Frequency: none NST Evaluation Patient States Movement: Present FHR Baseline: 140 Variability: Moderate 6-25 bpm Accelerations: 10x10 Decelerations: None NST Results: Reactive Note Ultrasound Done: Biophysical Profile Reason for Biophysical Profile: Equivocal NST. Provider that performed the study: Brooke Ovalles Is this a repeat study?: No Amniotic Fluid: 2 Largest Vertical Pocket: 7 Muscle Tone: 2 Body Movements: 2 Breathing Movements: 2 NST Results: Reactive Total Biophysical Profile Score: 10 Other Pertinent Findings: Presentation (Vertex) Coding for Biophysical Profile w/NST: Completed Exam, PETRA Largest Vertical Pocket: 7 Total PETRA: 23 Coding for PETRA w/NST: Completed Exam and Presentation Coding for Presentation w/NST: Completed Exam. NST Note Note: Patient presents for scheduled NST. Indication: Advanced maternal age. Patient reports good movement no issues with headache visual changes. She is presenting for a repeat visit at [facility] [place] early next week. She will continue twice weekly surveillance until she has any induction of labor on 11/29/2024. I performed a biophysical profile since the heart rate was reactive with accelerations of 10/10. NST Reviewed and Verified by: Brooke Ovalles
[2024-11-12 12:44] VITALS: BP 126/84; PULSE 68; TEMP 36.5
== END 2024-11-12 10:48 | disposition other institution (70) ==
LOC: BCD 07:26 → OBS 09:12
PROVIDERS: PCP Nurse Practitioner; Visit Provider Obstetrics & Gynecology Gynecology
DX: O09.523 Supervision of elderly multigravida, third trimester (principal); Z3A.35 35 weeks gestation of pregnancy
CPT/HCPCS: 59025; 76818

== ENCOUNTER 2024-11-19 08:29 | Outpatient (CLI) | payer MEDICAID, SELFPAY ==
[2024-11-19 09:09] VITALS: BP 141/82; PULSE 65; TEMP 36.4
[2024-11-19 09:12] VITALS: BP 141/82; PULSE 65
[2024-11-19 11:11] VITALS: BP 141/82; PULSE 65; TEMP 36.4
--- NOTE | 2024-11-19 11:11 | W.OBNST ---
Date of service: 11/19/24 Time of Service: 11:11 NST Evaluation Reason for NST Reasons for Nonstress Test: OTHER, SEE COMMENT Reason for NST Other: AMA Gestational Age Gestational Age in Weeks and Days: 36 Weeks and 4Days Test and Monitor Explained Test/Monitor Explained: Test Explained, Monitor Explained and Patient Verbalized Understanding Vital Signs Blood Pressure: 141/82 Pulse: 65 Temperature: 97.5 F Urine Results Urine Protein: Negative Urine Ketones: Negative Urine Glucose: Negative Urine Blood: Negative NST Information Date on Monitor: 11/19/24 Time on Monitor: 09:11 Date off Monitor: 11/19/24 Time off Monitor: 09:53 Total Time on Monitor: 42 NST Interventions: PO Hydration Contraction Frequency: 0 NST Evaluation Patient States Movement: Present FHR Baseline: 135 Variability: Moderate 6-25 bpm Accelerations: 10x10 Decelerations: None Note Ultrasound Done: N/A. NST Note Note: Category 1, reactive NST. GABRIELLE NST Reviewed and Verified by: Shamika Morin
== END 2024-11-19 09:58 ==
LOC: BCD 08:31 → OBS 09:07
PROVIDERS: PCP Nurse Practitioner; Visit Provider Obstetrics & Gynecology
DX: O09.523 Supervision of elderly multigravida, third trimester (principal); Z3A.36 36 weeks gestation of pregnancy
CPT/HCPCS: 59025

== ENCOUNTER 2024-11-22 17:48 | Outpatient (CLI) | payer MEDICAID, SELFPAY ==
[2024-11-22 19:10] LABS: Bilirubin Negative (Negative); Blood Negative (Negative); Clarity Sl Cloudy (Clear); Glucose Negative (Negative); Ketones Negative (Negative); Leukocyte Esterase Negative (Negative); Nitrite Negative (Negative); Specific Gravity 1.015 (1.005-1.025); Urobilinogen 0.2 mg/dL (Up to 0.2); pH 6.5 (5-8)
[2024-11-22 19:12] VITALS: BP 137/95; PULSE 79; TEMP 36.9
[2024-11-22 19:30] LABS: ROM Plus Negative
[2024-11-22 19:40] VITALS: BP 150/87; PULSE 69
[2024-11-22 19:56] VITALS: BP 165/94; PULSE 66
[2024-11-22 19:58] LABS: Abs Immature Grans 0.03 10^3/uL (0.0-0.06); Absolute Basophil Count 0.02 10^3/uL (0.0-0.2); Absolute Eosinophil Count 0.05 10^3/uL (0.0-0.7); Absolute Lymphocyte Count 1.67 10^3/uL (1.2-3.4); Absolute Monocyte Count 0.57 10^3/uL (0.1-0.8); Absolute Neutrophil Count 5.18 10^3/uL (1.2-6.7); Basophils % 0.3 %; Eosinophils % 0.7 %; HCT 35.4 % (36.0-46.0); HGB 11.9 g/dL (11.2-15.7); Immature Grans % 0.4 %; Lymphocytes % 22.2 %; MCH 30.9 pg (27.0-33.0); MCHC 33.6 % (32.0-36.0); MCV 92 fL (80-95); MPV 10.2 fL (8.0-11.0); Monocytes % 7.6 %; Neutrophils % 68.8 %; Platelet Count 209 10^3/uL (130-400); RBC 3.85 10^6/uL (3.93-5.22); RDW 14.2 % (11.7-14.6); RDW-SD 47.6 fL; WBC 7.52 10^3/uL (4.4-10.8)
[2024-11-22 20:11] LABS: ALT 13 U/L (14-59); AST 13 U/L (15-37); Albumin 2.4 g/dL (3.4-5.0); Alkaline Phosphatase 98 U/L (46-116); Anion Gap 9.8 mmol/L (3-11); BUN 8 mg/dL (7-18); Bilirubin, Total 0.27 mg/dL (0.2-1.0); CO2 23.2 mmol/L (21.0-32.0); CREATININE 0.7 mg/dL (0.55-1.02); Calcium 9.3 mg/dL (8.5-10.1); Chloride 105 mmol/L (98-107); Estimated GFR 102.71 (mL/min/1.73m2); Glucose 91 mg/dL (74-106); Sodium 138 mmol/L (136-145); Total Protein 6.6 g/dL (6.4-8.2)
[2024-11-22 20:30] LABS: COMMENT (LAB VIEW ONLY) 61.67 mg/dL; PROTEIN 12.8 mg/dL
[2024-11-22 20:36] VITALS: BP 149/86; PULSE 60
--- NOTE | 2024-11-23 05:17 | W.OBNST ---
Date of service: 11/22/24 Time of Service: 19:00 NST Evaluation Reason for NST Reasons for Nonstress Test: OTHER, SEE COMMENT Reason for NST Other: Rule out membranes rupture Gestational Age Gestational Age in Weeks and Days: 37 Weeks and 0Days Test and Monitor Explained Test/Monitor Explained: Test Explained, Monitor Explained and Patient Verbalized Understanding Urine Results Urine Protein: Negative Urine Ketones: Negative Urine Glucose: Negative Urine Blood: Negative NST Information Date on Monitor: 11/22/24 Time on Monitor: 19:29 Date off Monitor: 11/22/24 Time off Monitor: 19:52 Total Time on Monitor: 23 NST Interventions: PO Hydration NST Evaluation Patient States Movement: Present FHR Baseline: 135 Variability: Moderate 6-25 bpm Accelerations: 15x15 Decelerations: None NST Results: Reactive Note Ultrasound Done: N/A. NST Note NST Reviewed and Verified by: Laurita Portillo
== END 2024-11-22 20:42 ==
LOC: BCD 17:49 → OBS 18:44
PROVIDERS: PCP Nurse Practitioner; Visit Provider Obstetrics & Gynecology
DX: O47.1 False labor at or after 37 completed weeks of gestation (principal); Z3A.37 37 weeks gestation of pregnancy
CPT/HCPCS: 59025; 80053; 84112; 81003; 82565; 84156; 85025

== ENCOUNTER 2024-11-26 07:31 | Outpatient (CLI) | payer MEDICAID, SELFPAY ==
[2024-11-26 09:20] VITALS: BP 143/87; PULSE 69; TEMP 36.7
[2024-11-26 09:28] VITALS: BP 143/87; PULSE 69
[2024-11-26 10:25] VITALS: BP 130/62; PULSE 100
--- NOTE | 2024-11-29 09:45 | W.OBNST ---
Date of service: 11/26/24 Time of Service: 12:00 NST Evaluation Reason for NST Reasons for Nonstress Test: ADVANCED MATERNAL AGE Gestational Age Gestational Age in Weeks and Days: 37 Weeks and 4Days Test and Monitor Explained Test/Monitor Explained: Test Explained, Monitor Explained and Patient Verbalized Understanding Vital Signs Blood Pressure: 143/87 Pulse: 69 Temperature: 98.1 F NST Information Date on Monitor: 11/26/24 Time on Monitor: 09:20 Date off Monitor: 11/26/24 NST Interventions: PO Hydration NST Evaluation Patient States Movement: Present FHR Baseline: 150 Variability: Moderate 6-25 bpm Accelerations: 15x15 Decelerations: None NST Results: Reactive Note Ultrasound Done: N/A. NST Note Note: Reactive and reassuring. Patient denies any s/sx f preE, today. Scheduled for on Friday at [facility]. GBS collected today. Precautions reviewed and encouraged low threshold for seeking immediate medical evaluation if concerns arise. NST Reviewed and Verified by: Christianne Paz
[2024-11-29 09:46] VITALS: BP 143/87; PULSE 69; TEMP 36.7
== END 2024-11-26 10:10 ==
LOC: BCD 07:33 → OBS 09:19
PROVIDERS: PCP Nurse Practitioner; Visit Provider Obstetrics & Gynecology
DX: O09.523 Supervision of elderly multigravida, third trimester (principal); Z3A.37 37 weeks gestation of pregnancy
CPT/HCPCS: 59025; 87081

== ENCOUNTER 2024-12-06 12:07 | Outpatient (CLI) | payer MEDICAID, SELFPAY ==
[2024-12-06] VITALS (9 sets, daily range): BP systolic 148–177; BP diastolic 78–99; PULSE 57–61; RESP 57; TEMP 36.8; O2SAT 98
[2024-12-06] MEDS: Propranolol 20 MG TAB PO (12:53)
[2024-12-06 13:02] LABS: HCT 36.4 % (36.0-46.0); HGB 11.9 g/dL (11.2-15.7); MCHC 32.7 % (32.0-36.0); MCV 95 fL (80-95); MPV 8.9 fL (8.0-11.0); Platelet Count 356 10^3/uL (130-400); RBC 3.84 10^6/uL (3.93-5.22); RDW 14.2 % (11.7-14.6); RDW-SD 49.4 fL; WBC 6.37 10^3/uL (4.4-10.8)
[2024-12-06 13:27] LABS: ALT 29 U/L (14-59); AST 13 U/L (15-37); Albumin 3.1 g/dL (3.4-5.0); Alkaline Phosphatase 83 U/L (46-116); Anion Gap 8.7 mmol/L (3-11); BUN 16 mg/dL (7-18); Bilirubin, Total 0.4 mg/dL (0.2-1.0); CO2 27.3 mmol/L (21.0-32.0); CREATININE 0.8 mg/dL (0.55-1.02); Calcium 9.5 mg/dL (8.5-10.1); Chloride 105 mmol/L (98-107); Glucose 100 mg/dL (74-106); Potassium 3.9 mmol/L (3.5-5.1); Sodium 141 mmol/L (136-145); Total Protein 7.6 g/dL (6.4-8.2)
[2024-12-06] MEDS: NIFEdipine 10 MG CAP PO (13:46)
--- NOTE | 2024-12-06 15:13 | PGE_ITS ---
Date of Service Date of service: 12/06/24 Time of Service: 15:13 Assessment and Plan Assessment and plan (1) Status post repeat low transverse section: Status: Acute Assessment and plan: 1 week status post repeat section (2) Elevated blood pressure reading with diagnosis of hypertension: Status: Acute Assessment and plan: Elevated blood pressures in the face of chronic hypertension. Will increase her medication. She will continue her propranolol 20 mg twice daily with the addition of Procardia XL 30 mg in the evenings. She will be seen in close interval follow-up in 48 hours. All questions were answered. Subjective Subjective Interval history since last seen: Patient was initially seen in women's wellness today with elevated blood p ressures. On our visit, her blood pressures were 150s over 90s and she was transitioned to the center for further evaluation. She did have a couple of severe range blood pressures which responded to an additional dose of propranolol and 10 mg of Procardia. On further questioning, she had taken an additional dose of 10 mg of propranolol, but failed to take her morning dose of 20 mg. Over the course of the afternoon today, we had a lengthy conversation regarding appropriate management of her chronic hypertension, and medication management. She is on propranolol, 20 mg twice daily. She was instructed to resume this dose. She had an additional dose of 10 mg of Procardia which gave her good response. Will add 30 mg of Procardia XL in the evenings. She was instructed to take her blood pressure at home twice a day and report any blood pressures with a systolic greater than 160 or diastolic greater than 100. She was also educated on signs and symptoms of preeclampsia. We did emphasize the fact that good hydration, diet, and sleep are also important in her and postoperative management. Her laboratory studies that were performed today were normal. She will be discharged to home with close interval follow-up in 48 hours. Objective Last Vital Signs Temp 98.2 F 12/06/24 12:25 Pulse 61 12/06/24 13:13 Resp 57 H 12/06/24 12:25 BP 150/78 H 12/06/24 14:46 Pulse Ox 98 12/06/24 12:25 Laboratory Results - last 24 hr 12/06/24 13:00 WBC 6.37 RBC 3.84 L Hgb 11.9 Hct 36.4 MCV 95 MCH 31.0 MCHC 32.7 RDW 14.2 Plt Count 356 MPV 8.9 Sodium 141 Potassium 3.9 Chloride 105 Carbon Dioxide 27.3 Anion Gap 8.7 BUN 16 Creatinine 0.8 Est GFR (CKD-EPI 2020) 87.50 Glucose 100 Calcium 9.5 Total Bilirubin 0.4 AST 13 L ALT 29 Alkaline Phosphatase 83 Total Protein 7.6 Albumin 3.1 L Time Spent with Patient Time Spent with Patient: 35-49 minutes Time was spent: preparing to see the patient(eg.review tests), obtaining and/or reviewing separately otained hiistory, ordering medications,tests, procedures, referring, communicating with other health spiritual care coordinator, indepentently interpreting results and counseling the patient
== END 2024-12-06 15:29 | disposition other institution (70) ==
LOC: BCD 12:07 → OBS 12:43
PROVIDERS: PCP Nurse Practitioner; Visit Provider Obstetrics & Gynecology
DX: O99.893 Other specified diseases and conditions complicating puerperium (principal); R03.0 Elevated blood-pressure reading, without diagnosis of hypertension
CPT/HCPCS: 36415; 80053; 85027; 99211

== ENCOUNTER 2024-12-30 15:44 | Outpatient (CLI) | payer MEDICAID, SELFPAY ==
[2024-12-31 18:44] LABS: Antimullerian Hormone <0.03 ng/mL (<0.88)
== END 2024-12-30 15:45 | disposition home or self-care (01) ==
LOC: LBO 15:44
PROVIDERS: PCP Nurse Practitioner; Visit Provider Obstetrics & Gynecology
DX: N97.9 Female infertility, unspecified (principal); I10 Essential (primary) hypertension; Z98.891 History of uterine scar from previous surgery
CPT/HCPCS: 36415; 83520